=== PATIENT | female | born 1945 | race Caucasian/White ===

== ENCOUNTER 2017-05-03 10:02 | Outpatient (CLI) | payer MEDICARE ==
--- NOTE | 2017-05-03 11:59 | RAD ---
LUMBAR SPINE TWO VIEWS: HISTORY: Lower back pain with pain in the left hip for one year. COMPARISON: Lumbar spine MRI from 04/07/2017. FINDINGS: There is anterolisthesis, 6-7 mm, of L4 over L5, in the neutral position, increasing to approximatel y 9 mm with flexion, with a decrease back to the 6-7 mm with extension. There appears to be a large circumferential disk osteophyte complex at T12-L1, giving the appearance of a superior endplate depression deformity. The same is true for T11-T12. Severe disk arthropathy at L4-L5. IMPRESSION: 1. Anterolisthesis, 7 mm, of L4 over L5, which increases with flexion and reduces back to 7 mm with extension. 2. Large circumferential disk osteophyte complex at T12-L1, giving the appearance of a superior end plate deformity, although this was not seen on the recent MRI examination. 3. Severe facet arthropathy at L4-L5. 4. 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 POS: OFF
== END 2017-05-03 10:03 | disposition home or self-care (01) ==
LOC: TBSIIMAG 10:02
PROVIDERS: ATTEND Neurological Surgery
DX: M51.16 Intervertebral disc disorders with radiculopathy, lumbar region (principal); M43.16 Spondylolisthesis, lumbar region
CPT/HCPCS: 72100

== ENCOUNTER 2019-07-23 09:00 | Outpatient (CLI) | payer MEDICARE ==
--- NOTE | 2019-07-23 10:15 | MRI ---
MRI lumbar spine noncontrast HISTORY: Low back pain. Left leg radiculopathy. COMPARISON: 04/07/2017. FINDINGS: Images that partially show the abdomen show demonstrate cysts of the liver and kidneys. The conus medullaris has normal appearance. There is desiccation of all of the intervertebral discs. Scattered discogenic endplate changes within the bone marrow. Vertebral body heights are maintained. T12-L1: Disc space narrowing. Mild posterior disc bulge. Osteophytosis of the facets. No significant central canal or foraminal stenosis. L1-2: Mild posterior disc bulge. Degenerative changes of the facets with fluid present. Central canal and right neural foramina are patent. Mild to moderate stenosis of the left neural foramen. L2-3: Mild posterior disc bulge. Circumferential degenerative changes. Moderate stenosis of the centr al canal and each neural foramen. Minimal degenerative retrolisthesis. L3-4: Disc space narrowing. Mild posterior disc bulge. Degenerative changes of the facets. Thecal sac is patent. Mild right and mild to moderate left foraminal stenoses. L4-5: Disc space narrowing. Approximately 0.7 cm spondylolisthesis, increased since the 2017 study. P osterior disc bulge and pseudobulge and circumferential degenerative changes. Very severe stenosis of the central canal. Moderate to severe right and moderate left foraminal stenoses. L5-S1: Mild osteophytosis. Central canal and neural foramina are patent. IMPRESSION: Significant progression of degenerative changes, most severe at the L4-5 level, with very severe central canal stenosis.
--- NOTE | 2019-07-23 11:11 | RAD ---
EXAM: XR Lumbar Spine Min 4 View PROVIDED CLINICAL HISTORY: Radicular lumbar pain. Patient reports chronic low back pain for 2 years. COMPARISON: 05/03/2017 FINDINGS: Transitional vertebra seen at the lumbosacral junction. Again noted is grade 1 anterolisthesis of L4 on L5. The degree of listhesis measures approximately 9 mm on both flexion and extension views which is similar to prior study. There are prominent facet hypertrophic changes at this level. Scattered osteophytes are seen in the lower thoracic spine. There is mild narrowing of the L4-5 and L 5-S1 intervertebral disc spaces. The vertebral body heights are within normal limits. No fracture is appreciated. There is mild S-shaped curvature of the thoracolumbar spine. Surgical clips overlie the right upper quadrant IMPRESSION: 1. Degenerative changes in the lumbar spine with stable anterolisthesis of L4 on L5, and the degree o f listhesis is similar on flexion and extension as well as neutral positioning. 2. Severe facet hypertrophic changes L4-5 level with additional scattered degenerative changes in the lower thoracic as well as involving the lumbar spine.
== END 2019-07-23 09:01 | disposition home or self-care (01) ==
LOC: BICMRI 09:00
PROVIDERS: ATTEND Nurse Practitioner Family
DX: M47.26 Other spondylosis with radiculopathy, lumbar region (principal); M43.16 Spondylolisthesis, lumbar region; M48.061 Spinal stenosis, lumbar region without neurogenic claudication
CPT/HCPCS: 72110; 72148

== ENCOUNTER 2019-09-05 05:36 | Day surgery (SDC) | payer MEDICARE ==
[2019-09-04 11:50] VITALS: BMI 33.3
--- NOTE | 2019-09-04 21:39 | HP ---
HISTORY OF PRESENT ILLNESS: Ms. Arnett is known to our office for evaluation of lower back pain and claudication symptoms with MRI confirming spinal stenosis years ago, who has been treating this with epidural steroid injection since that time and had great result until the last few months, when they began to notice the efficacy. Her symptoms also seem to be worsening. She is walker dependent and walks with a severely stooped posture, frequently takes breaks as well to sit back down, at which time her symptoms improve tremendously. The MRI reveals worsening of her grade 1 slip at L4-L5 as well as severe central canal stenosis at the same level her symptoms. She and her were under the impression that we will be discussing a spinal stimulator placement; however, reviewing her symptoms and films, I felt she would greatly benefit from decompressive surgery first. PAST MEDICAL HISTORY: Significant for hypertension, chronic pain, and headaches. CURRENT MEDICATIONS: 1. Calcium. 2. Amlodipine. 3. Trazodone. 4. Atenolol. 5. Losartan. 6. Diclofenac. 7. Tramadol. PAST SURGICAL HISTORY: Hysterectomy, cholecystectomy, herniorrhaphy, and bilateral total knee replacements. ALLERGIES: NO KNOWN DRUG ALLERGIES. PHYSICAL EXAMINATION: The patient is alert and oriented x3. Gait is severely antalgic, stooped, and walker dependent. Lower extremity motor exam is normal. She does have positive straight leg raise bilaterally. ASSESSMENT: Lumbar spinal stenosis and spondylolisthesis. PLAN: Dr. Funez met with the patient, reviewed imaging, and advocated for an L4-L5 decompression and fusion. He explained to the patient the risks, benefits, and alternatives to the procedure. The patient expressed understanding and elected to move forward with surgery as discussed. I do believe the patient is mentally competent and capable of making medical decisions for herself. We will move forward with surgery as planned. Job ID: [id number]
[2019-09-05] MEDS ORDERED: EPINEPHrine 1 MG/ML AMP ONE (06:22)
[2019-09-05] MEDS ORDERED: Bupivacaine PF 0.5% 30 ML VIAL ONE (06:22)
[2019-09-05] MEDS ORDERED: Thrombin 5000 UNITS/5 ML VIAL ONE (06:22)
[2019-09-05 06:42] LABS: #Basophils 0.1 thou/uL (0.0-0.2); #Eosinphils 0.2 thou/uL (0.0-0.7); #Lymphocytes 2.3 thou/uL (1.20-3.40); #Monocytes 0.7 thou/uL (0.11-0.59); #Neutrophils 6.5 thou/uL (1.40-6.50); %Basophils 0.6 % (0.0-1.0); %Eosinophils 1.7 % (0.0-10.0); %Lymphocytes 24.2 % (21.0-51.0); %Monocytes 6.8 % (0.0-10.0); %Neutrophils 66.6 % (42.0-75.0); Hemoglobin 16.1 g/dL (12.0-16.0); Mean Corpuscular Hemoglobin 32.1 pg (27.0-31.0); Mean Corpuscular Volume 97.2 fL (78.0-98.0); Mean Platelet Volume 8.1 fL (7.4-10.4); Platelet Count 207 thou/uL (130-400); RBC Distribution Width 12.4 % (11.5-14.5); Red Blood Cell (RBC) Count 5.01 mill/uL (4.20-5.40); White Blood Cell (WBC) Count 9.7 thou/uL (4.8-10.8)
[2019-09-05] MEDS ORDERED: Fentanyl 100 MCG/2 ML VIAL ONE ×2 (06:43→08:38)
[2019-09-05 06:48] LABS: PTT 24.6 SEC (22.9-36.1); Prothrombin Time 13.6 SEC (12.0-14.7)
[2019-09-05 06:57] LABS: Anion Gap 15 mmol/L (10-20); BUN (Urea Nitrogen) 20 mg/dL (9.8-20.1); Calc. Creatinine Clearance 59 mL/min (70-130); Calcium 10.4 mg/dL (7.8-10.44); Carbon Dioxide 25 mmol/L (23-31); Chloride 107 mmol/L (98-107); Estimated GFR-MDRD 45; Glucose 159 mg/dL (83-110); Potassium 4.5 mmol/L (3.5-5.1); Sodium 142 mmol/L (136-145)
[2019-09-05] MEDS ORDERED: ePHEDrine/0.9% NaCl/PF SYRINGE 50 mg/10 ml ONE (09:17)
[2019-09-05] MEDS ORDERED: Rocuronium Bromide 10 MG/ML (10ML VIAL) ONE (09:17)
[2019-09-05] MEDS ORDERED: Glycopyrrolate 0.2 MG/ML 5 ML SYRINGE ONE (09:17)
[2019-09-05] MEDS ORDERED: Dexamethasone 20 MG/5 ML VIAL ONE (09:17)
[2019-09-05] MEDS ORDERED: Lidocaine 1% PF 5 ML VIAL ONE (09:17)
[2019-09-05] MEDS ORDERED: PROPOFOL 200 MG/20 ML VIAL ONE (09:17)
[2019-09-05] MEDS ORDERED: Ondansetron PF 4 MG/2 ML Vial ONE (09:17)
[2019-09-05] MEDS ORDERED: HYDROcodone/Acetaminophen 5/325 mg Tablet ONE ×2 (11:37→13:31)
[2019-09-05] MEDS ORDERED: Triple Antibiotic Oint 1 GM Packet TOP SCH (14:00)
--- NOTE | 2019-09-05 15:43 | OP ---
DATE OF PROCEDURE: 09/05/2019 BLIND TEACHER: Rashad Boucher PA-C INDICATION: Pain. DIAGNOSIS: Lumbar spondylolisthesis with stenosis. PROCEDURES PERFORMED: L4-L5 bilateral facetectomies, bilateral L4-L5 instrumentation. ANESTHESIA: General. DESCRIPTION OF PROCEDURE: The patient was brought into the operating room and placed under general anesthesia. She was flipped from the supine to prone position on the operating room table. A linear incision was planned over the L4-L5 segment. After prepping and draping and after an appropriate operative pause, the incision was created. The soft tissues were swept away from midline. Self-retaining retractors were placed in the wound for optimal exposure. After confirming appropriate level with C-arm fluoroscopy, an Adson rongeur as well as a high-speed cutting drill bit as well as 2-, 3-, and 4-mm Kerrisons were used to remove lamina, spinous process at L4-L5, and the facet joints in order to decompress the central canal and lateral recesses. The pedicles were palpated, and pedicle screws were placed with the aid of C-arm fluoroscopy. An intraoperative 3D CT scan was performed to confirm appropriate placement of hardware. Rods were then placed across the screw heads and final tightened. Allograft and autograft material were then placed within the lateral confines of the instrumentation construct. The wound was then irrigated. Hemostasis was maintained throughout. The wound was then closed in anatomic layers and a pressure dressing was applied. There were no known procedural complications. Job ID: [id number]
== END 2019-09-05 14:20 | disposition home or self-care (01) ==
LOC: SDC 05:36
PROVIDERS: ATTEND Neurological Surgery
PROC: 01NB0ZZ Release Lumbar Nerve, Open Approach (ICD-10-PCS; principal; 2019-09-05)
DX: M48.061 Spinal stenosis, lumbar region without neurogenic claudication (principal); M43.16 Spondylolisthesis, lumbar region; I10 Essential (primary) hypertension; Z79.899 Other long term (current) drug therapy
CPT/HCPCS: 36415; 76000; 80048; 85025; 85610; 85730; 93005; 93010; C1713; J0171; J0690; J1100; J2001; J2405; J2704; J3010; S0020

== ENCOUNTER 2019-10-09 12:40 | Inpatient (IN) | payer MEDICARE ==
--- NOTE | 2019-10-09 13:19 | RAD ---
RADIOGRAPH CHEST 1 VIEW: DATE: 10/09/2019 HISTORY: 74-year-old female with dyspnea FINDINGS: There is no airspace density, pulmonary edema, or pneumothorax. The lateral costophrenic angles are n ot effaced. IMPRESSION: No acute pulmonary findings.
[2019-10-09] MEDS ORDERED: Iopamidol-370 76% 500 ML 1 ML ONE (13:59)
[2019-10-09 14:05] LABS: #Eosinphils 0.1 thou/uL (0.0-0.7); #Lymphocytes 2.4 thou/uL (1.20-3.40); #Monocytes 0.7 thou/uL (0.11-0.59); #Neutrophils 6.3 thou/uL (1.40-6.50); %Basophils 0.4 % (0.0-1.0); %Eosinophils 1.2 % (0.0-10.0); %Lymphocytes 24.7 % (21.0-51.0); %Monocytes 7.3 % (0.0-10.0); %Neutrophils 66.4 % (42.0-75.0); Hemoglobin 14.7 g/dL (12.0-16.0); Mean Corpuscular HGB CONC 33.2 g/dL (32.0-36.0); Mean Corpuscular Volume 99.3 fL (78.0-98.0); Mean Platelet Volume 8.9 fL (7.4-10.4); Platelet Count 194 thou/uL (130-400); RBC Distribution Width 13.4 % (11.5-14.5); Red Blood Cell (RBC) Count 4.47 mill/uL (4.20-5.40); White Blood Cell (WBC) Count 9.5 thou/uL (4.8-10.8)
[2019-10-09 14:26] LABS: ALT (SGPT) 47 U/L (8-55); AST (SGOT) 37 U/L (5-34); Alkaline Phosphatase 113 U/L (40-110); Anion Gap 16 mmol/L (10-20); BUN (Urea Nitrogen) 26 mg/dL (9.8-20.1); Bilirubin, Total 0.5 mg/dL (0.2-1.2); Calc. Creatinine Clearance 0 mL/min (70-130); Calcium 10.1 mg/dL (7.8-10.44); Carbon Dioxide 25 mmol/L (23-31); Chloride 105 mmol/L (98-107); Estimated GFR-MDRD 39; Globulin 2.8 g/dL (2.4-3.5); Glucose 206 mg/dL (83-110); Potassium 4.5 mmol/L (3.5-5.1); Protein, Total 6.8 g/dL (6.0-8.3); Sodium 141 mmol/L (136-145)
--- NOTE | 2019-10-09 15:06 | CT ---
CTA Angio Chest W WO Con 10/09/2019 12:54 PM Indication: Dyspnea with history of recent surgery Technique: Multiple CTA images were obtained of the thorax with IV contrast. 3-D rendering: MIP ignacio nstructed images were created and reviewed. Comparison: No relevant prior studies available. Findings: Pulmonary arteries: There is a near occlusive thrombus seen within the distal right main pulmonary a rtery with occlusive thrombus seen within the lateral segment branches of the right middle lobe. There is also occlusive thrombus seen within the right interlobar artery partially occlusive thrombus extending into the segmental pulmonary arteries of the right lower lobe. There is also nearly occlusive thrombus seen within the upper right lobar pulmonary artery with subsegmental thrombus exte nding into the right upper lobe pulmonary arterial segments. There is partially occlusive thrombus seen involving the left lower lobar and segmental pulmonary arteries. There is occlusive thrombus at the involving the lobar arteries to the lingula and left upper lobe. Heart and Aorta: There is flattening of the interventricular septum is some reflux of contrast in th e IVC. Mediastinum:Normal appearing. No enlarged lymph nodes. Lungs:There are patchy groundglass opacities within the anterior segment of the right upper lobe. The re are reticular nodular opacities within the posterior lateral right lower lobe which are nonspecific. Calcified granuloma seen within the left lower lobe. Pleural space: Clear. Upper Abdomen: Calcified nodular density seen within the gastrohepatic ligament is stable to compari son CT the abdomen and pelvis dated 05/19/2016. There is stable hypertrophy of the left adrenal gland. There is mild fatty liver. There are numerous nonobstructing left renal stones. Osseous Structures: No acute osseous abnormality. There is scattered degenerative and osteoarthritic change present. Soft tissues:No abnormality. Other findings:None. Impression: Extensive PE seen affecting both lungs with some flattening of the interventricular septum and reflux of contrast in the IVC suspicious suspicious for early right heart dysfunction. Findings were called to Dr. Mg at 2:55 PM on October 09, 2019. Area of groundglass opacity right upper lobe may reflect early pulmonary hemorrhage; however, pneumon itis or mild pulmonary edema could have a similar appearance. Continued follow-up is recommended. Reticular nodular opacity of the posterior right lower lobe may reflect a respiratory bronchiolitis. Mild fatty liver.
[2019-10-09] MEDS ORDERED: Acetaminophen 325 MG TAB PO PRN (15:55)
[2019-10-09] MEDS ORDERED: niCARdipine 25 MG in Sodium Chloride 0.9% 250 ML 240 ML IVPB PRN (15:57)
[2019-10-09] MEDS ORDERED: niCARdipine 20MG In NaCl 0 MG/0 ML BAG ONE (16:15)
[2019-10-09] MEDS ORDERED: traMADol HCl 50 MG TAB PO PRN (16:46)
[2019-10-09] MEDS ORDERED: Heparin 10,000 UNITS/ 10 ML VIAL SLOW IVP SCH ×2 (17:00→18:15)
[2019-10-09] MEDS ORDERED: Heparin 25,000 units/D5W 500 ML IVPB SCH (17:00)
--- NOTE | 2019-10-09 17:11 | CON ---
DATE OF CONSULTATION: 10/09/2019 REASON FOR CONSULTATION: Saddle pulmonary embolism. HISTORY OF PRESENT ILLNESS: Ms. Arnett is a 74-year-old female, who presented to the emergency room with 2 to 3 days of increasing shortness of breath. She has no hemoptysis, bleeding diathesis, or evidence of gastrointestinal bleeding. She does have a previous history of a pulmonary embolism many years ago, for which she took Lovenox and Eliquis, but has been off both those medications for some time. Today in the emergency room, she underwent a CT pulmonary angiogram, which demonstrated bilateral mainstem pulmonary emboli. She has had severe hypoxemia with O2 saturations in the low 80s on 4 L nasal cannula. She had a flattening of her septum on the CT. PAST MEDICAL HISTORY: 1. Pulmonary emboli. 2. Hypertension. 3. DVT. 4. Previous ischemic stroke. PAST SURGICAL HISTORY: 1. Cystoscopy. 2. Ureteroscopy. 3. Cholecystectomy. 4. Right total knee replacement. 5. Hysterectomy. 6. Left total knee replacement. SOCIAL HISTORY: Nonsmoker. Does not consume alcohol. Lives at home with her . MEDICATIONS PRIOR TO ADMISSION: 1. Atenolol 25 mg twice daily. 2. Amlodipine 10 mg daily. 3. Losartan 100 mg daily. 4. Diclofenac/misoprostol 50/200 mcg one twice daily. 5. Trazodone 100 mg nightly. REVIEW OF SYSTEMS: Denies fever, chills, nausea, vomiting, hematemesis, melena, hematochezia, hematuria, or dysuria. PHYSICAL EXAMINATION: VITAL SIGNS: Blood pressure 156/78, pulse 95, respirations 20, temperature 98.3, and O2 saturation low 80s 4 L. GENERAL: She is sitting, appears in no distress. HEENT: Pupils are reactive. Sclerae anicteric. Oropharynx clear. NECK: No adenopathy or JVD. LUNGS: Clear without wheezing or rhonchi. CARDIOVASCULAR: S1 and S2. Regular without audible murmur. ABDOMEN: Soft and nontender. EXTREMITIES: No clubbing, cyanosis, or edema. NEUROLOGIC: Fully intact throughout. LABORATORY DATA: White blood cell count 9.5, hematocrit 44.4, and platelet count 194. Sodium 141, potassium 4.5, chloride 105, CO2 of 25, BUN 26, creatinine 1.3, and glucose 206. BNP 1017.8 and troponin 0.018. I reviewed the CT of her chest personally. ASSESSMENT: 1. Massive pulmonary embolism. 2. Previous history of pulmonary embolism. 3. Refractory hypoxemia with evidence of septum flattening on CT of the chest. RECOMMENDATIONS: I concur with Dr. Mg that the best way to proceed in this case is thrombolysis with 100 mg of tPA given over 2 hours. Her blood pressure was somewhat high, so we will give her some medicine to lower that somewhat starting tomorrow. She will need to be placed on Eliquis or Lovenox. She will need anticoagulation lifelong. We discussed the risks of thrombolysis prior to the patient receiving the medication and she agreed to proceed. Thank you for the referral. We will follow. Job ID: [id number]
[2019-10-09 17:22] LABS: Hemoglobin 15.8 g/dL (12.0-16.0); Platelet Count 158 thou/uL (130-400)
[2019-10-09 18:11] VITALS: BMI 36.1
--- NOTE | 2019-10-09 20:22 | HP ---
CHIEF COMPLAINT: Shortness of breath. HISTORY OF PRESENT ILLNESS: This patient is a 74-year-old female with a history of prior pulmonary embolus some time ago. The patient was on anticoagulation for that, but apparently at some point, had discontinued that. She was subsequently seen here for lumbar stenosis surgery with fusion on 09/05. Subsequently, the patient was inactive for few days and her activity level since then has not been particularly significant. reports that she spends a lot of time sitting in the recliner and she had no lower extremity pain, redness, or swelling. However, she did develop some shortness of breath over the last few days, which has become significantly more today. The patient presented to the emergency department. She denies any chest pain, hemoptysis, fevers, or chills. REVIEW OF SYSTEMS: Again, denies any lower extremity pain, redness, swelling, chest pain, cough, hemoptysis. She does have shortness of breath. She has had no fevers or chills. Normal bowel and bladder habits. All other systems reviewed. All pertinent positives and negatives noted in the history of present illness. PAST MEDICAL HISTORY: Notable for hypertension, osteoarthritis, history of a CVA about 16 years ago. She has a history of nephrolithiasis, history of DVT with pulmonary embolus. FAMILY HISTORY: Reviewed. Nothing contributory related to this admission. PAST SURGICAL HISTORY: She has had knee replacement surgery, shoulder surgery, and the lumbar fusion on 09/05. ALLERGIES: NONE. CURRENT MEDICATIONS: 1. Trazodone 50 mg at bedtime. 2. Tramadol 50 mg q.6 p.r.n. pain. 3. Losartan 100 mg daily. 4. Atenolol 50 mg b.i.d. 5. Amlodipine 5 mg daily. 6. Diclofenac one p.o. b.i.d. PHYSICAL EXAMINATION: VITAL SIGNS: Pulse 77, respirations 16, BP 168/108, she is afebrile. GENERAL APPEARANCE: Age-appropriate female, in no distress. She is awake, alert, oriented, pleasant, cooperative, mildly tachypneic. HEENT: PERRL. No OP lesions. NECK: Supple and symmetric. HEART: Regular rate and rhythm without murmurs, gallops, or rubs. LUNGS: Clear to auscultation bilaterally with good chest wall expansion and air exchange. ABDOMEN: Soft, nontender, and nondistended. Positive bowel sounds. No masses. No organomegaly. EXTREMITIES: Have trace lower extremity edema. No obvious erythema. Palpation was limited. PSYCH: Normal affect and behavior. NEUROLOGICAL: Moves all extremities spontaneously. Normal cranial nerve function. Cognitively intact. Normal sensation throughout. LABORATORY DATA: White count 9.5, hemoglobin 14.7, platelets 194. Sodium 141, potassium 4.5, chloride 105, CO2 is 25, BUN 26, creatinine 1.32, GFR is 39, glucose 206, calcium 10.1, AST 37, ALT 47, alkaline phosphatase 113. Troponin is 0.018. BNP 1017.8. Chest x-ray, no acute pulmonary findings. CTA of chest, extensive PE seen affecting both lungs with some flattening of the interventricular septum and reflux of contrast in the IVC, suspicious for early right heart dysfunction. Area of ground-glass opacity of the right upper lobe, possibly reflecting early pulmonary hemorrhage; however, pneumonitis or mild pulmonary edema could appear similar. Reticulonodular opacity in the posterior right lower lobe may reflect respiratory bronchiolitis, mild fatty liver. IMPRESSION AND PLAN: 1. Large pulmonary embolism, currently causing some hypoxia with sats at 88% on 4 L nasal cannula with right axis deviation and poor R-wave progression on EKG. The patient has been seen by Dr. Lee. She is about to receive some tPA once the blood pressure is adequately controlled and will be admitted to the ICU subsequently. This is the second time the patient has had a thrombus, will need lifelong anticoagulation. 2. Hypertensive urgency. The patient actually remains asymptomatic. However, given the need to administer the tPA, we have to get her blood pressures down into the appropriate acceptable range. Cardene drip is being initiated at 5 mg/hour and titrated as needed to maintain appropriate blood pressure control for administration of the tPA. 3. Acute hypoxic respiratory failure secondary to the pulmonary embolism. Continue supplemental oxygen as needed. 4. History of osteoarthritis, holding off on diclofenac for now given the need for the tPA. We will continue with her tramadol as needed. 5. Case was discussed with her PCP, Dr. Yosef Evans. Job ID: [id number]
[2019-10-09] MEDS: Atenolol 50 MG TAB PO SCH (20:29)
[2019-10-09] MEDS: traZODone HCl 50 MG TAB PO SCH (20:29)
[2019-10-09] MEDS: Communication Order-Pharmacy FS SCH (21:18)
[2019-10-10 04:13] LABS: PTT 143.7 SEC (22.9-36.1)
--- NOTE | 2019-10-10 08:47 | PRG ---
DATE OF SERVICE: SUBJECTIVE: Ms. Arnett is doing better today. She got her tPA yesterday. She has been able to come down on the oxygen. Her blood pressure has been stable on exam. OBJECTIVE: VITAL SIGNS: Temperature 98.5, pulse 55, blood pressure 154/77. Total intake 920, output 1000. HEENT: Unremarkable. NECK: No adenopathy or JVD. CHEST: Clear. CARDIAC: S1 and S2, regular. ABDOMEN: Soft. EXTREMITIES: No edema. LABORATORY DATA: PTT 26.1. Hemoglobin 15.8, hematocrit 48, and platelet count 158. ASSESSMENT: Pulmonary embolism. PLAN: 1. Continue heparin drip today. 2. Probably convert to Eliquis tomorrow if stable. 3. Keep in CCU until she is 24 hours post tPA. Job ID: [id number]
[2019-10-10] MEDS: Amlodipine 5 MG TAB PO SCH (09:09)
[2019-10-10] MEDS: Losartan 25 MG TAB PO SCH (09:10)
[2019-10-10] MEDS: Atenolol 50 MG TAB PO SCH ×2 (09:10→21:37)
--- NOTE | 2019-10-10 14:55 | PDOC.HOSPP ---
- Subjective Encounter Date: 10/10/19 Subjective: Doing very well. Breathing is much improved. - Objective Vital Signs & Weight: Vital Signs (12 hours) Temp Pulse BP Pulse Ox 10/10/19 12:00 98.6 F 10/10/19 09:10 71 119/58 L 10/10/19 09:09 71 119/58 L 10/10/19 08:08 99 10/10/19 07:40 97 10/10/19 07:00 98.5 F 10/10/19 04:00 98.5 F Weight Weight 217 lb 2.485 oz Most Recent Monitor Data Heart Rate from ECG 66 NIBP 130/65 NIBP BP-Mean 86 Respiration from ECG 21 SpO2 97 I&O: 10/09/19 10/10/19 10/11/19 06:59 06:59 06:59 Intake Total 920 570 Output Total 1000 150 Balance -80 420 Result Diagrams: 10/09/19 17:04 10/09/19 13:54 Hospitalist ROS - Medication Medications: Active Medications Generic Name Dose Route Start Last Admin Trade Name Alexq PRN Reason Stop Dose Admin Amlodipine Besylate 5 mg 10/10/19 09:00 10/10/19 09:09 Norvasc PO 5 mg DAILY JARAD Administration Atenolol 50 mg 10/09/19 21:00 10/10/19 09:10 Tenormin PO 50 mg BID JARAD Administration Heparin Sodium (Porcine) 0 units 10/09/19 18:15 10/10/19 08:21 Heparin 1,000 Units/Ml (10 Ml) SLOW IVP 7,880 unit ASDIR JARAD Administration Protocol Heparin Sodium/Dextrose 500 mls @ 0 mls/hr 10/09/19 17:00 10/09/19 21:56 Heparin 25,000 Units/D5w IVPB 500 mls INF JARAD Administration Protocol Per Protocol Losartan Potassium 100 mg 10/10/19 09:00 10/10/19 09:10 Cozaar PO 100 mg DAILY JARAD Administration Miscellaneous Information 1 each 10/09/19 16:00 10/09/19 21:18 Communication Order-Pharmacy FS 10/10/19 16:01 Not Given NOW JARAD Trazodone HCl 50 mg 10/09/19 21:00 10/09/19 20:29 Desyrel PO 50 mg HS JARAD Administration - Exam General Appearance: NAD, awake alert Heart: RRR, no murmur, no gallops, no rubs, normal peripheral pulses Respiratory: CTAB, no wheezes, no rales, no ronchi, normal chest expansion, no tachypnea, normal percussion Gastrointestinal: soft, non-tender, non-distended, normal bowel sounds, no palpable masses, no hepatomegaly, no splenomegaly, no bruit Extremities: no cyanosis, no clubbing, no edema Skin: normal turgor Musculoskeletal: normal tone Psychiatric: normal affect, normal behavior, A&O x 3 Hosp A/P (1) Acute respiratory failure with hypoxia Code(s): J96.01 - ACUTE RESPIRATORY FAILURE WITH HYPOXIA Status: Acute (2) Pulmonary embolism with acute cor pulmonale Code(s): I26.09 - OTHER PULMONARY EMBOLISM WITH ACUTE COR PULMONALE Status: Acute (3) HTN (hypertension) Code(s): I10 - ESSENTIAL (PRIMARY) HYPERTENSION Status: Acute (4) CKD (chronic kidney disease), stage III Code(s): N18.3 - CHRONIC KIDNEY DISEASE, STAGE 3 (MODERATE) Status: Acute - Plan Doing well post tPA for large bilateral PE with cor pulmonale and acute hypoxia. Now on heparin gtt. Will convert to OAC tomorrow. Can likely transfer out of the ICU tomorrow. Increase activity this evening (24 hours after the tPA). Recheck labs in am.
[2019-10-10 14:57] LABS: PTT Greater than 250.0 SEC (22.9-36.1)
[2019-10-10] MEDS: Communication Order-Pharmacy FS SCH (16:10)
[2019-10-10] MEDS: traZODone HCl 50 MG TAB PO SCH (21:33)
[2019-10-11 03:49] LABS: #Basophils 0.1 thou/uL (0.0-0.2); #Eosinphils 0.3 thou/uL (0.0-0.7); #Lymphocytes 2.8 thou/uL (1.20-3.40); #Monocytes 0.9 thou/uL (0.11-0.59); #Neutrophils 4.9 thou/uL (1.40-6.50); %Basophils 0.6 % (0.0-1.0); %Eosinophils 3.8 % (0.0-10.0); %Lymphocytes 31.2 % (21.0-51.0); %Monocytes 10.1 % (0.0-10.0); %Neutrophils 54.3 % (42.0-75.0); Hemoglobin 13.3 g/dL (12.0-16.0); Mean Corpuscular HGB CONC 32.1 g/dL (32.0-36.0); Mean Corpuscular Hemoglobin 31.8 pg (27.0-31.0); Mean Corpuscular Volume 99.3 fL (78.0-98.0); Mean Platelet Volume 8.6 fL (7.4-10.4); Platelet Count 193 thou/uL (130-400); RBC Distribution Width 13.4 % (11.5-14.5); Red Blood Cell (RBC) Count 4.19 mill/uL (4.20-5.40)
[2019-10-11 04:08] LABS: Anion Gap 12 mmol/L (10-20); BUN (Urea Nitrogen) 14 mg/dL (9.8-20.1); Calc. Creatinine Clearance 80 mL/min (70-130); Calcium 9.8 mg/dL (7.8-10.44); Carbon Dioxide 26 mmol/L (23-31); Chloride 106 mmol/L (98-107); Estimated GFR-MDRD 57; Glucose 150 mg/dL (83-110); Potassium 3.9 mmol/L (3.5-5.1); Sodium 140 mmol/L (136-145)
[2019-10-11 06:41] LABS: PTT 132.6 SEC (22.9-36.1)
[2019-10-11] MEDS: Atenolol 50 MG TAB PO SCH ×2 (08:28→20:25)
[2019-10-11] MEDS: Amlodipine 5 MG TAB PO SCH (08:29)
[2019-10-11] MEDS: Losartan 25 MG TAB PO SCH (08:29)
[2019-10-11] MEDS: Apixaban 5 MG TAB PO SCH ×2 (08:29→20:27)
--- NOTE | 2019-10-11 08:37 | PRG ---
DATE OF SERVICE: 10/11/2019 SUBJECTIVE: Ms. Arnett has a poor memory for what is going on. Overall, she seems stable and has had no bleeding events overnight. OBJECTIVE: VITAL SIGNS: Her temperature is 98.5, pulse 55, blood pressure 121/48, O2 saturations 97%. A 24-hour intake 1855, output 1500. HEENT: Unremarkable. NECK: No adenopathy or JVD. LUNGS: Clear anteriorly. CARDIAC: S1 and S2. Regular. ABDOMEN: Soft. EXTREMITIES: No edema. LABORATORY DATA: White blood cell count 9, hematocrit 41.6, and platelet count 193. PTT 132. Sodium 140, potassium 3.9, chloride 106, CO2 of 26, BUN 14, creatinine 0.9, glucose 150. ASSESSMENT: 1. Massive pulmonary embolism. 2. Acute hypoxic respiratory failure, which is now resolved. PLAN: She can transfer to telemetry. I will go ahead and start her on Eliquis and stop the heparin drip about 2 hours after the first Eliquis dose. She will need to remain on dose of Eliquis 10 mg b.i.d. for 7 days and then transition to 5 mg b.i.d. thereafter indefinitely. We will go ahead and start ambulation today. Job ID: [id number]
[2019-10-11] MEDS ORDERED: Dextrose 5% in Water 1,000 ML IV PRN (08:42)
[2019-10-11] MEDS ORDERED: Dextrose 50% Abboject 50 ML SYRINGE SLOW IVP PRN (08:42)
--- NOTE | 2019-10-11 09:33 | PRG ---
DATE OF SERVICE: 10/11/2019 SUBJECTIVE: The patient is seen and examined at the bedside. She is doing well. Her respirations improved. She is sitting up and eating her breakfast. OBJECTIVE: VITAL SIGNS: Blood pressure is 167/89, pulse is 76, respirations 16, O2 saturation is 92% on O2. HEENT: Her head is atraumatic, normocephalic. Eyes are PERRLA. Sclerae are nonicteric. Oral mucosa is moist. NECK: Supple. LUNGS: Bilateral rales at both bases, mild. HEART: S1 and S2 normal. No S3. No S4. ABDOMEN: Soft, obese, nontender. EXTREMITIES: No clubbing, cyanosis, or edema. NEUROLOGICAL: She is alert and oriented x4. There is no any motor or sensory deficits. LABORATORY DATA: White count of 9.0, hemoglobin 13.3, hematocrit 41.6, platelet count is 193,000. APTT 132.6. Normal chemistry. Glucose 150. IMPRESSION: 1. Acute respiratory failure with hypoxia. 2. Pulmonary embolism with acute cor pulmonale. 3. Hypertension. 4. Chronic kidney disease, stage 3, improved. DISCUSSION: The patient is post tPA for large bilateral PE, doing well. The patient was seen by Dr. Lee, who recommends to taper her heparin drip off and she is switched to apixaban 10 mg twice a day. Her glycemia is running high. We will do hemoglobin A1c and Accu-Cheks a.c. and at bedtime and cover her with mild sliding scale with Humalog. Job ID: [id number]
[2019-10-11] MEDS: HumaLOG 300 UNITS/3 ML VIAL SC PRN (11:46)
[2019-10-11 17:10] LABS: Hemoglobin 14.1 g/dL (12.0-16.0); Platelet Count 204 thou/uL (130-400)
[2019-10-11] MEDS: traZODone HCl 50 MG TAB PO SCH (20:25)
[2019-10-12 03:44] LABS: Anion Gap 11 mmol/L (10-20); BUN (Urea Nitrogen) 15 mg/dL (9.8-20.1); Calc. Creatinine Clearance 82 mL/min (70-130); Calcium 10.2 mg/dL (7.8-10.44); Carbon Dioxide 27 mmol/L (23-31); Chloride 107 mmol/L (98-107); Estimated GFR-MDRD 60; Glucose 145 mg/dL (83-110); Potassium 4.3 mmol/L (3.5-5.1); Sodium 141 mmol/L (136-145)
[2019-10-12] MEDS: Apixaban 5 MG TAB PO SCH ×2 (07:35→19:54)
[2019-10-12] MEDS: Losartan 25 MG TAB PO SCH (07:35)
[2019-10-12] MEDS: Amlodipine 5 MG TAB PO SCH (07:36)
--- NOTE | 2019-10-12 07:44 | PRG ---
DATE OF SERVICE: 10/12/2019 SUBJECTIVE: The patient doing extraordinarily well, not requiring oxygen at this time. No acute complaints. OBJECTIVE: VITAL SIGNS: On exam, temperature is 98.5, pulse 65, and blood pressure 172/88. HEENT: Unremarkable. NECK: No adenopathy or JVD. CHEST: Clear. CARDIAC: S1 and S2. Regular. ABDOMEN: Soft. EXTREMITIES: No edema. LABORATORY DATA: Sodium 141, potassium 4.3, BUN 15, creatinine 0.9, and glucose 145. ASSESSMENT: Status post thrombolysis for massive pulmonary embolism. PLAN: She can be transferred to the medical floor. Continue Eliquis lifelong, dose will be 10 mg twice daily for the next 6 days and then 5 mg twice a day thereafter. I think she would be safe enough to be discharged tomorrow. Job ID: [id number]
[2019-10-12] MEDS: Atenolol 50 MG TAB PO SCH ×2 (09:17→20:48)
--- NOTE | 2019-10-12 09:27 | PRG ---
DATE OF SERVICE: 10/12/2019 SUBJECTIVE: The patient is seen examined at the bedside. She feels significantly better. Her breathing is improved. OBJECTIVE: VITAL SIGNS: Blood pressure is 152/64, pulse is 63, respirations 17, O2 saturation is 93% on room air. HEENT: Head is atraumatic and normocephalic. Eyes are PERRLA. Sclerae are nonicteric. Oral mucosa is moist. NECK: Supple. LUNGS: Breath sounds diminished at both bases with few crackles at both bases. HEART: S1, S2 normal. No S3. No S4. ABDOMEN: Soft. Obese. Nontender. EXTREMITIES: No clubbing, cyanosis, or edema. NEUROLOGICAL: She follows my commands. She moves all 4 extremities. There are no any motor or sensory deficits. LABORATORY DATA: Labs showed normal chemistry. Glucose ranging from 140-188, calcium 10.2. Normal kidney function. IMPRESSION: 1. Acute respiratory failure with hypoxia, resolved. 2. Pulmonary embolism with acute cor pulmonale. 3. Hypertension. 4. Chronic kidney disease stage 3, improved. 5. Diabetes mellitus, new onset. PLAN: The patient is going to continue observation on the telemetry. She is switched to oral apixaban. Lovenox was discontinued. Her glycemia will be treated with short-acting insulin according to sliding scale. She should be able to go home in the next 24 to 48 hours. Job ID: [id number]
[2019-10-12] MEDS: HumaLOG 300 UNITS/3 ML VIAL SC PRN (11:38)
[2019-10-12] MEDS: traZODone HCl 50 MG TAB PO SCH (19:54)
[2019-10-13 06:53] LABS: Anion Gap 12 mmol/L (10-20); BUN (Urea Nitrogen) 17 mg/dL (9.8-20.1); Calc. Creatinine Clearance 68 mL/min (70-130); Calcium 10.3 mg/dL (7.8-10.44); Carbon Dioxide 28 mmol/L (23-31); Chloride 105 mmol/L (98-107); Estimated GFR-MDRD 48; Glucose 149 mg/dL (83-110); Potassium 4.8 mmol/L (3.5-5.1); Sodium 140 mmol/L (136-145)
[2019-10-13] MEDS: Losartan 25 MG TAB PO SCH (08:40)
[2019-10-13] MEDS: Apixaban 5 MG TAB PO SCH ×2 (08:40→19:38)
[2019-10-13] MEDS: Amlodipine 5 MG TAB PO SCH (08:40)
[2019-10-13] MEDS: Atenolol 50 MG TAB PO SCH ×2 (08:47→19:47)
--- NOTE | 2019-10-13 10:10 | PRG ---
DATE OF SERVICE: 10/13/2019 SUBJECTIVE: The patient is seen and examined at bedside. She is doing well. She is not short of breath. She did not have any blood in her stool. She had normal bowel movement and there was no any blood in her urine. OBJECTIVE: VITAL SIGNS: Blood pressure is 125/79, pulse is 69, respiratory rate is 18, temperature is 98.4, pulse oximetry is 93% on room air. HEAD: Atraumatic and normocephalic. Eyes are PERRLA. Sclerae are nonicteric. Oral mucosa is moist. NECK: Supple. HEART: S1, S2 normal. LUNGS: Breath sounds diminished at both bases. ABDOMEN: Soft, nontender. EXTREMITIES: No clubbing, cyanosis, or edema. NEUROLOGICAL: Intact. LABORATORY DATA: Labs show normal electrolytes. BUN of 17, creatinine up to 1.11. Glycemia is ranging from 140 to 261 and calcium is 10.3. IMPRESSION: 1. Massive bilateral pulmonary embolism, on apixaban 10 mg twice a day for additional 5 days, then 5 mg twice a day, after that for life. 2. Acute respiratory failure with hypoxia secondary to #1, resolved. 3. Hypertension. 4. Diabetes mellitus, new onset. 5. Chronic kidney disease stage 3, worsened. PLAN: I am going to extent observation of this patient for additional 24 hours since she had massive PE with cor pulmonale and she had a tPA done. I am going to start her on small dose of metformin for her new onset diabetes and we will give her IV fluids for worsened creatinine and we will extend observation for 24 hours. She should be able to go home tomorrow if there is no any new problem. Job ID: [id number]
[2019-10-13] MEDS: Sodium Chloride 0.9% 1,000 ML IV SCH ×2 (10:16→22:40)
[2019-10-13] MEDS: metFORMIN 500 MG TAB PO SCH (10:20)
--- NOTE | 2019-10-13 10:47 | PRG ---
DATE OF SERVICE: 10/13/2019 SUBJECTIVE: This morning, she is better. No shortness of breath. Less cough. OBJECTIVE: VITAL SIGNS: Temperature 98, pulse 69, saturations are 98% on room air, blood pressure 128/79. CHEST: No wheezing or crackles. CARDIAC: Normal S1, S2. No gallops. ABDOMEN: No masses. ASSESSMENT: 1. Status post massive PE, status post tPA, on Eliquis. 2. Mild azotemia. DISPOSITION: Home any time, on Eliquis. Follow up with Dr. Lee. Job ID: [id number]
[2019-10-13 16:56] LABS: Platelet Count 276 thou/uL (130-400)
[2019-10-13] MEDS: traZODone HCl 50 MG TAB PO SCH (19:38)
[2019-10-13] MEDS: HumaLOG 300 UNITS/3 ML VIAL SC PRN (19:43)
[2019-10-14] MEDS: Sodium Chloride 0.9% 1,000 ML IV SCH (04:53)
[2019-10-14 05:57] LABS: #Eosinphils 0.3 thou/uL (0.0-0.7); #Lymphocytes 2.1 thou/uL (1.20-3.40); #Neutrophils 6.2 thou/uL (1.40-6.50); %Basophils 0.3 % (0.0-1.0); %Eosinophils 3.4 % (0.0-10.0); %Lymphocytes 21.6 % (21.0-51.0); %Monocytes 10.7 % (0.0-10.0); Hemoglobin 14.1 g/dL (12.0-16.0); Mean Corpuscular HGB CONC 33.2 g/dL (32.0-36.0); Mean Corpuscular Hemoglobin 33.1 pg (27.0-31.0); Mean Corpuscular Volume 99.6 fL (78.0-98.0); Mean Platelet Volume 7.8 fL (7.4-10.4); Platelet Count 286 thou/uL (130-400); RBC Distribution Width 13.5 % (11.5-14.5); Red Blood Cell (RBC) Count 4.26 mill/uL (4.20-5.40); White Blood Cell (WBC) Count 9.7 thou/uL (4.8-10.8)
[2019-10-14 06:18] LABS: Anion Gap 11 mmol/L (10-20); BUN (Urea Nitrogen) 15 mg/dL (9.8-20.1); Calc. Creatinine Clearance 80 mL/min (70-130); Calcium 10.4 mg/dL (7.8-10.44); Carbon Dioxide 24 mmol/L (23-31); Chloride 108 mmol/L (98-107); Estimated GFR-MDRD 57; Glucose 144 mg/dL (83-110); Potassium 4.1 mmol/L (3.5-5.1); Sodium 139 mmol/L (136-145)
[2019-10-14 07:35] VITALS: BP 154/78; TEMP 98
[2019-10-14] MEDS: Losartan 25 MG TAB PO SCH (09:14)
[2019-10-14] MEDS: Apixaban 5 MG TAB PO SCH (09:15)
[2019-10-14] MEDS: metFORMIN 500 MG TAB PO SCH (09:15)
[2019-10-14] MEDS: Amlodipine 5 MG TAB PO SCH (09:15)
[2019-10-14] MEDS: Atenolol 50 MG TAB PO SCH (09:16)
--- NOTE | 2019-10-14 11:06 | DIS ---
DATE OF ADMISSION: 10/09/2019 DATE OF DISCHARGE: 10/13/2019 DIAGNOSES AT THE TIME OF DISCHARGE: 1. Massive bilateral pulmonary embolism. 2. Acute respiratory failure with hypoxia secondary to #1 resolved. 3. Hypertension. 4. Diabetes mellitus, new onset. 5. Chronic kidney disease, stage 3. PROCEDURE: TPA. CONSULTANTS: 1. Dr. London Lee, Pulmonary Service. 2. Dr. Von Noel, Pulmonary Service. HOSPITAL COURSE: The patient is a 74-year-old female, who was admitted to the hospital with acute onset of shortness of breath. Apparently, she has history of prior pulmonary embolism some time ago and she was treated with anticoagulation for that, but apparently at some point, she discontinued the medications. Subsequently, she had lumbar stenosis surgery with fusion in August and she developed shortness of breath, which gradually became significantly worse and she presented to the emergency room for further evaluation. She denied any chest pain, hemoptysis, fever, or chills. She denied any lower extremity pain, redness, swelling, chest pain, cough, or any other symptoms. In the emergency room, she had CT angiogram of the chest, which showed extensive PE bilaterally with evidence of flattening of the interventricular septum and reflex of contrast in the IVC suspicious for early right heart dysfunction. Because of her hypoxia, she was placed on 4 L of oxygen by nasal cannula. Because of the right heart straining, she was treated with tPA and was admitted to intensive care unit. She was seen by Dr. Lee for pulmonary evaluation, who recommended tPA with 100 mg dose over 2 hours and switch to Eliquis after transition with Lovenox. She did very well post treatment. She did not have any significant side effects. Her echocardiogram was done and it showed LVEF estimated at 55% to 60% with moderate concentric left ventricular hypertrophy and right ventricular systolic pressure elevation at approximately 80 mmHg systolic in the pulmonary artery. She also had [id number] tricuspid regurgitation and moderately to severely enlarged right ventricle cavity. Her IVC was dilated. She was transferred out from the intensive care unit. She was placed on apixaban 10 mg twice a day and started on metformin 500 mg twice a day since her glycemia was running on higher side. This was new onset of previously borderline diabetes mellitus type 2. She is doing well today. PHYSICAL EXAMINATION: VITAL SIGNS: Her blood pressure is 154/78, pulse is 66, respiratory rate is 17, temperature is 98.0, and O2 saturation is 91% on room air. HEENT: Her head is atraumatic and normocephalic. Eyes are PERRLA. Sclerae are nonicteric. LUNGS: Breath sounds diminished at both bases. HEART: S1 and S2 normal. No S3. No S4. ABDOMEN: Obese, soft, nontender. NEUROLOGIC: She is alert and oriented x4. There are no any motor or sensory deficits. Labs show hemoglobin of 14.1, hematocrit 42.5. Normal kidney function. Her glycemia is ranging from 170 to 241, so I recommended her to stay on metformin 500 mg twice a day for her new onset diabetes along with losartan 100 mg once a day and amlodipine 5 mg daily and atenolol 50 mg twice a day. She will use tramadol for her pain and she is going to avoid any anti-inflammatory medications for that purpose. FOLLOWUP: She will follow up with her primary care physician in 1 week. She will stay on 2000 calories ADA diet with low salt. ACTIVITIES: As tolerated. Job ID: [id number]
== END 2019-10-14 11:11 | disposition home or self-care (01) | DRG 175 ==
LOC: ERS 12:40 → CCU 15:20 → T4-B 10-12 15:10
PROVIDERS: ADMIT Emergency Medicine; ATTEND Internal Medicine
DX: I26.09 Other pulmonary embolism with acute cor pulmonale (principal); J96.01 Acute respiratory failure with hypoxia; I12.9 Hypertensive chronic kidney disease with stage 1 through stage 4 chronic kidney disease, or unspecified chronic kidney disease; E11.22 Type 2 diabetes mellitus with diabetic chronic kidney disease; I16.0 Hypertensive urgency; N18.3 Chronic kidney disease, stage 3 (moderate); Z96.653 Presence of artificial knee joint, bilateral; Z98.1 Arthrodesis status; Z86.73 Personal history of transient ischemic attack (TIA), and cerebral infarction without residual deficits; Z79.4 Long term (current) use of insulin; Z90.49 Acquired absence of other specified parts of digestive tract; Z90.710 Acquired absence of both cervix and uterus; Z86.718 Personal history of other venous thrombosis and embolism; Z79.01 Long term (current) use of anticoagulants
CPT/HCPCS: 36415; 36416; 37195; 71045; 71275; 80048; 80053; 83880; 84484; 85014; 85018; 85025; 85049; 85730; 93306; 94760; 96361; 96365; 99292; J1644; J2997; J7050; Q9967

== ENCOUNTER 2020-11-13 10:15 | Inpatient (IN) | payer MEDICARE ==
[2020-11-13] MEDS ORDERED: niCARdipine 20MG In NaCl 0 MG/0 ML BAG ONE (10:20)
[2020-11-13 10:44] LABS: #Basophils 0.1 thou/uL (0.0-0.2); #Eosinphils 0.2 thou/uL (0.0-0.7); #Lymphocytes 3.3 thou/uL (1.20-3.40); #Monocytes 0.7 thou/uL (0.11-0.59); #Neutrophils 5.3 thou/uL (1.40-6.50); %Basophils 1.4 % (0.0-1.0); %Eosinophils 1.7 % (0.0-10.0); %Lymphocytes 34.4 % (21.0-51.0); %Neutrophils 55.5 % (42.0-75.0); Mean Corpuscular HGB CONC 32.7 g/dL (32.0-36.0); Mean Corpuscular Hemoglobin 32.6 pg (27.0-31.0); Mean Corpuscular Volume 99.6 fL (78.0-98.0); Mean Platelet Volume 8.1 fL (7.4-10.4); Platelet Count 227 thou/uL (130-400); RBC Distribution Width 12.8 % (11.5-14.5); Red Blood Cell (RBC) Count 4.91 mill/uL (4.20-5.40); White Blood Cell (WBC) Count 9.5 thou/uL (4.8-10.8)
[2020-11-13 10:50] LABS: INR-International Normal Ratio 1.1; PTT 27.6 sec (22.9-36.1); Prothrombin Time 14.3 sec (12.0-14.7)
[2020-11-13 11:00] LABS: ALT (SGPT) 18 U/L (8-55); AST (SGOT) 19 U/L (5-34); Albumin 4.3 g/dL (3.4-4.8); Alkaline Phosphatase 96 U/L (40-110); Anion Gap 14 mmol/L (10-20); BUN (Urea Nitrogen) 26 mg/dL (9.8-20.1); Bilirubin, Total 0.4 mg/dL (0.2-1.2); CK (CPK) 36 U/L (29-168); Calc. Creatinine Clearance 0 mL/min (70-130); Calcium 11.1 mg/dL (7.8-10.44); Carbon Dioxide 30 mmol/L (23-31); Chloride 102 mmol/L (98-107); Globulin 3.4 g/dL (2.4-3.5); Glucose 138 mg/dL (83-110); Potassium 4.6 mmol/L (3.5-5.1); Protein, Total 7.7 g/dL (5.8-8.1); Sodium 141 mmol/L (136-145)
[2020-11-13] MEDS ORDERED: Iopamidol 370 76% 100 ML VIAL ONE (11:23)
[2020-11-13] MEDS ORDERED: HUM PROTHROMBIN CPLX IV SCH (11:45)
[2020-11-13] MEDS ORDERED: [UNRECOGNIZED DRUG - OTHER] IV SCH (11:45)
[2020-11-13] MEDS ORDERED: HUMAN PROTHROMBIN COMPLX IV SCH (11:45)
[2020-11-13] MEDS ORDERED: niCARdipine 20MG In NaCl 20 MG/200 ML BAG ONE ×2 (11:51→14:48)
[2020-11-13] MEDS ORDERED: Electrolyte Replacement Protocol 1 EACH IVPB ONE (12:07)
[2020-11-13] MEDS ORDERED: Dextrose 50% Abboject 50 ML SYRINGE SLOW IVP PRN ×2 (12:08→19:22)
[2020-11-13] MEDS ORDERED: HumaLOG 300 UNITS/3 ML VIAL SC PRN (12:08)
[2020-11-13] MEDS ORDERED: Dextrose 5% in Water 1,000 ML IV PRN (12:08)
[2020-11-13] MEDS ORDERED: niCARdipine 25 MG in Sodium Chloride 0.9% 250 ML 240 ML IVPB SCH (12:15)
[2020-11-13] MEDS ORDERED: Electrolyte Replacement Protocol FS PRN (12:30)
[2020-11-13 13:13] LABS: SARS-CoV-2 NAA Rapid Test Not Detected (NotDetected)
[2020-11-13 14:05] LABS: Chloride 101 mmol/L (98-107); Potassium 4.1 mmol/L (3.5-5.1); Sodium 139 mmol/L (136-145)
[2020-11-13 14:06] LABS: Calcium 11.3 mg/dL (7.8-10.44); Glucose 108 mg/dL (83-110)
[2020-11-13 14:08] LABS: Anion Gap 17 mmol/L (10-20); Carbon Dioxide 25 mmol/L (23-31)
[2020-11-13 14:09] LABS: Calc. Creatinine Clearance 0 mL/min (70-130)
[2020-11-13 14:10] LABS: BUN (Urea Nitrogen) 22 mg/dL (9.8-20.1)
[2020-11-13] MEDS ORDERED: Dextrose 50% Abboject 50 ML SYRINGE ONE (19:55)
[2020-11-13] MEDS: Atorvastatin Calcium 40 MG TAB PO SCH (20:15)
[2020-11-14 01:04] LABS: Bilirubin Negative (Negative); Blood, Urine 1+ (Negative); Clarity Turbid (Clear); Glucose, Urine (Dipstick) 70 mg/dL (Negative); Ketone, Urine Negative (Negative); Leukocyte 250 Leu/uL (Negative); Nitrite Negative (Negative); Protein, Urine (Dipstick) Negative (Neg-Trace); RBC/HPF 0-3 HPF (0-3); Specific Gravity, Urine 1.012 (1.002-1.036); Squamous Epithelial 0-3 HPF (0-3); Urobilinogen Normal mg/dL (Less than 2); WBC/HPF 21-50 HPF (0-3); pH, Urine 7.5 (5.0-9.0)
[2020-11-14 01:05] LABS: Bacteria/HPF 1+ HPF (None Seen)
[2020-11-14] MEDS ORDERED: hydrALAZINE 20 MG/ML VIAL ONE (11:42)
[2020-11-14] MEDS: hydrALAZINE 20 MG/ML VIAL SLOW IVP PRN ×2 (11:46→16:32)
[2020-11-14 12:29] LABS: INR-International Normal Ratio 0.9; Prothrombin Time 12.1 sec (12.0-14.7)
[2020-11-14 14:01] LABS: Cardiac Risk 4.9 (Less than 4.5)
[2020-11-14 15:15] LABS: INR-International Normal Ratio 0.9; Prothrombin Time 12.4 sec (12.0-14.7)
[2020-11-14 15:48] LABS: Thyroid Stimulating Hormone 2.2458 uIU/mL (0.35-4.94); Vitamin D, 25 Hydroxy 28.3 ng/ml (> 30.0)
[2020-11-14] MEDS: cefTRIAXone\\ROCEPHIN 1 GM in Sodium Chloride 0.9% 100 ML IVPB SCH (16:31)
[2020-11-14] MEDS: HumaLOG 300 UNITS/3 ML VIAL SC PRN (18:24)
[2020-11-14] MEDS: Atorvastatin Calcium 40 MG TAB PO SCH (21:25)
[2020-11-15] MEDS: hydrALAZINE 20 MG/ML VIAL SLOW IVP PRN (05:08)
[2020-11-15] MEDS ORDERED: Lidocaine 1% (PF) 30 ML VIAL ONE (09:37)
[2020-11-15] MEDS ORDERED: Iopamidol 370 76% 50 ML VIAL FS ONE (11:10)
[2020-11-15] MEDS: cefTRIAXone\\ROCEPHIN 1 GM in Sodium Chloride 0.9% 100 ML IVPB SCH (14:01)
[2020-11-15] MEDS: metFORMIN 500 MG TAB PO SCH (20:01)
[2020-11-15] MEDS: Atorvastatin Calcium 40 MG TAB PO SCH (20:01)
[2020-11-15] MEDS: Atenolol 50 MG TAB PO SCH (20:01)
[2020-11-16] MEDS: Losartan 25 MG TAB PO SCH (10:26)
[2020-11-16] MEDS: Atenolol 50 MG TAB PO SCH ×2 (10:27→20:49)
[2020-11-16] MEDS: metFORMIN 500 MG TAB PO SCH ×2 (10:27→20:49)
[2020-11-16] MEDS: cefTRIAXone\\ROCEPHIN 1 GM in Sodium Chloride 0.9% 100 ML IVPB SCH (14:59)
[2020-11-16] MEDS ORDERED: Amlodipine 5 MG TAB PO SCH (18:15)
[2020-11-16] MEDS: Atorvastatin Calcium 40 MG TAB PO SCH (20:49)
[2020-11-17] MEDS: Losartan 25 MG TAB PO SCH (09:16)
[2020-11-17] MEDS: metFORMIN 500 MG TAB PO SCH ×2 (09:17→21:54)
[2020-11-17] MEDS: Atenolol 50 MG TAB PO SCH ×2 (09:20→21:54)
[2020-11-17] MEDS: Amlodipine 5 MG TAB PO SCH (09:21)
[2020-11-17] MEDS: HumaLOG 300 UNITS/3 ML VIAL SC PRN (11:52)
[2020-11-17 19:37] LABS: Alpha 1 - Ur 3.5 % (.); Alpha 2 - Ur 6.9 % (.); Beta-Ur 15.2 % (.); Gamma-Ur 13.3 % (.); M-Spike,% Not Observed % (Not Observed); Protein, Urine 16.9 mg/dL (Not Estab.)
[2020-11-17] MEDS: Atorvastatin Calcium 40 MG TAB PO SCH (21:54)
[2020-11-18] MEDS: metFORMIN 500 MG TAB PO SCH ×2 (08:22→20:58)
[2020-11-18] MEDS: Amlodipine 5 MG TAB PO SCH ×2 (08:22→20:58)
[2020-11-18] MEDS: Atenolol 50 MG TAB PO SCH ×2 (08:23→20:57)
[2020-11-18] MEDS: Losartan 25 MG TAB PO SCH (08:23)
[2020-11-18] MEDS: Atorvastatin Calcium 40 MG TAB PO SCH (20:58)
[2020-11-19] MEDS: Losartan 25 MG TAB PO SCH (09:24)
[2020-11-19] MEDS: Amlodipine 5 MG TAB PO SCH ×2 (09:24→20:48)
[2020-11-19] MEDS: Atenolol 50 MG TAB PO SCH ×2 (09:24→20:48)
[2020-11-19] MEDS: metFORMIN 500 MG TAB PO SCH ×2 (09:24→20:47)
[2020-11-19 09:47] LABS: Anion Gap 16 mmol/L (10-20); BUN (Urea Nitrogen) 29 mg/dL (9.8-20.1); Calc. Creatinine Clearance 67 mL/min (70-130); Carbon Dioxide 27 mmol/L (23-31); Chloride 105 mmol/L (98-107); Glucose 209 mg/dL (83-110); Potassium 4.1 mmol/L (3.5-5.1); Sodium 144 mmol/L (136-145)
[2020-11-19] MEDS: HumaLOG 300 UNITS/3 ML VIAL SC PRN (11:54)
[2020-11-19] MEDS ORDERED: Loperamide HCl 1 MG/7.5 ML UDCUP PO PRN (19:27)
[2020-11-19] MEDS: Atorvastatin Calcium 40 MG TAB PO SCH (20:47)
[2020-11-20] MEDS ORDERED: Magnesium 2 GM/50 ML 2 GM in Premix Bag 1 BAG IVPB SCH (08:15)
[2020-11-20] MEDS ORDERED: Polyethylene Glycol 3350 17 GM Packet PO SCH (09:00)
[2020-11-20] MEDS: Amlodipine 5 MG TAB PO SCH (10:30)
[2020-11-20] MEDS: metFORMIN 500 MG TAB PO SCH (10:31)
[2020-11-20] MEDS: Atenolol 50 MG TAB PO SCH (10:31)
[2020-11-20] MEDS: Losartan 25 MG TAB PO SCH (10:38)
[2020-11-20] MEDS ORDERED: Magnesium Oxide 400 MG TAB PO SCH (11:30)
[2020-11-20] MEDS: HumaLOG 300 UNITS/3 ML VIAL SC PRN (11:54)
[2020-11-20 13:16] LABS: A/G Ratio 1.1 (0.7-1.7); Albumin 3.9 g/dL (2.9-4.4); Alpha 1 0.2 g/dL (0.0-0.4); Alpha 2 0.8 g/dL (0.4-1.0); Beta 1.4 g/dL (0.7-1.3); Gamma 1.2 g/dL (0.4-1.8); Globulin, Total 3.6 g/dL (2.2-3.9); M-Spike Not Observed g/dL (Not Observed)
[2020-11-20 13:52] VITALS: BMI 33.7
[2020-11-20 20:25] VITALS: BP 143/59; TEMP 98
== END 2020-11-20 21:27 | DRG 64 ==
LOC: ERS 10:15 → ERHOLD 11:53 → 2SE 11-14 16:04
PROVIDERS: ADMIT Internal Medicine; ATTEND Internal Medicine
PROC: 06H03DZ Insertion of Intraluminal Device into Inferior Vena Cava, Percutaneous Approach (ICD-10-PCS; principal; 2020-11-15)
DX: I61.9 Nontraumatic intracerebral hemorrhage, unspecified (principal); J96.01 Acute respiratory failure with hypoxia; G81.94 Hemiplegia, unspecified affecting left nondominant side; N39.0 Urinary tract infection, site not specified; R29.810 Facial weakness; M19.90 Unspecified osteoarthritis, unspecified site; F03.90 Unspecified dementia, unspecified severity, without behavioral disturbance, psychotic disturbance, mood disturbance, and anxiety; I67.1 Cerebral aneurysm, nonruptured; Z96.653 Presence of artificial knee joint, bilateral; E11.22 Type 2 diabetes mellitus with diabetic chronic kidney disease; I12.9 Hypertensive chronic kidney disease with stage 1 through stage 4 chronic kidney disease, or unspecified chronic kidney disease; N18.31 Chronic kidney disease, stage 3a; Z20.822 Contact with and (suspected) exposure to COVID-19; R47.1 Dysarthria and anarthria; R19.7 Diarrhea, unspecified; E83.52 Hypercalcemia; B96.4 Proteus (mirabilis) (morganii) as the cause of diseases classified elsewhere; Z79.899 Other long term (current) drug therapy; Z79.84 Long term (current) use of oral hypoglycemic drugs; Z86.73 Personal history of transient ischemic attack (TIA), and cerebral infarction without residual deficits; Z90.49 Acquired absence of other specified parts of digestive tract; Z90.710 Acquired absence of both cervix and uterus; Z86.718 Personal history of other venous thrombosis and embolism; Z79.01 Long term (current) use of anticoagulants; Z86.711 Personal history of pulmonary embolism; Z98.890 Other specified postprocedural states
CPT/HCPCS: 0240U; 36415; 36416; 37191; 70450; 70496; 70498; 71045; 76536; 76942; 80048; 80053; 80061; 81003; 81015; 82306; 82330; 82550; 83735; 83970; 84165; 84166; 84443; 84484; 85025; 85610; 85730; 87045; 87046; 87077; 87086; 87186; 87324; 87328; 87329; 87427; 87449; 93005; 93010; 93306; 95712; 95819; 95957; 96365; 96366; 96367; C1880; C9132; J0360; J0696; J1815; J2001; J2997; J3490; J7050; Q9967

== ENCOUNTER 2021-01-21 08:12 | Outpatient (CLI) | payer MEDICARE | END 2021-01-21 08:13 | disposition home or self-care (01) | LOC: BICCT 08:12 | PROVIDERS: ATTEND Neurological Surgery | DX: I62.9 Nontraumatic intracranial hemorrhage, unspecified (principal) | CPT/HCPCS: 70450 ==

== ENCOUNTER 2022-04-05 09:51 | Outpatient (CLI) | payer MEDICARE | END 2022-04-05 09:52 | disposition home or self-care (01) | LOC: BICCT 09:51 | PROVIDERS: ATTEND Neurological Surgery | DX: I62.9 Nontraumatic intracranial hemorrhage, unspecified (principal) | CPT/HCPCS: 70450 ==

== ENCOUNTER 2024-05-26 12:05 | Inpatient (IN) | payer MEDICARE ==
[2024-05-26] MEDS ORDERED: Iopamidol-370 76% 500 ML MDV (1 ML CHARGE) ONE (12:45)
[2024-05-26 13:26] LABS: #Basophils Less than 0.03 10x3/uL (0.0-0.2); %Basophils 0.2 % (0.0-1.0); %Eosinophils 1.1 % (0.0-10.0); %Lymphocytes 21.5 % (21.0-51.0); %Monocytes 9.5 % (0.0-10.0); %Neutrophils 67.5 % (42.0-75.0); Hematocrit 43.1 % (36.0-47.0); Hemoglobin 14.1 g/dL (12.0-16.0); Mean Corpuscular HGB CONC 32.7 g/dL (32.0-36.0); Mean Corpuscular Hemoglobin 31.7 pg (27.0-31.0); Mean Corpuscular Volume 96.9 fL (78.0-98.0); Mean Platelet Volume 10.2 fL (7.4-10.4); Platelet Count 220 10x3/uL (130-400); RBC Distribution Width 13.5 % (11.5-14.5); Red Blood Cell (RBC) Count 4.45 mill/uL (4.20-5.40)
[2024-05-26 13:44] LABS: ALT (SGPT) 19 U/L (8-55); AST (SGOT) 20 U/L (5-34); Albumin 3.9 g/dL (3.4-4.8); Alkaline Phosphatase 85 U/L (40-110); Anion Gap 15 mmol/L (10-20); BUN (Urea Nitrogen) 15 mg/dL (9.8-20.1); Bilirubin, Total 1.1 mg/dL (0.2-1.2); Calc. Creatinine Clearance 0 mL/min (70-130); Calcium 10.8 mg/dL (7.8-10.44); Carbon Dioxide 26 mmol/L (23-31); Chloride 107 mmol/L (98-107); Estimated GFR 51; Globulin 3.5 g/dL (2.4-3.5); Glucose 104 mg/dL (83-110); Lipase 32 U/L (8-78); Magnesium 2.2 mg/dL (1.6-2.6); Potassium 3.6 mmol/L (3.5-5.1); Protein, Total 7.4 g/dL (5.8-8.1); Sodium 144 mmol/L (136-145)
[2024-05-26 13:47] LABS: Troponin I Less than 0.010 ng/mL (< 0.028)
[2024-05-26 13:49] LABS: Bilirubin Negative (Negative); Blood, Urine Negative (Negative); CAUTI Indications for Culture Alt mental st,lethar; Clarity Turbid (Clear); Glucose, Urine (Dipstick) Normal (Negative); Ketone, Urine Negative (Negative); Leukocyte 250 Leu/uL (Negative); Nitrite 1+ (Negative); Protein, Urine (Dipstick) 20 mg/dL (Neg-Trace); RBC/HPF 0-3 HPF (0-3); Specific Gravity, Urine 1.002 (1.002-1.036); Squamous Epithelial 0-3 HPF (0-3); Urobilinogen Normal mg/dL (Less than 2); WBC/HPF Greater than 50 HPF (0-3)
[2024-05-26 13:52] LABS: Bacteria/HPF 1+ HPF (None Seen)
[2024-05-26 13:53] LABS: Urine Culture Reflex Yes Yes
[2024-05-26] MEDS ORDERED: cefTRIAXone (ROCEPHIN) 1 GM VIAL ONE (14:12)
[2024-05-26] MEDS ORDERED: Sodium Chloride 0.9% 100 ML ONE (14:13)
[2024-05-26] MEDS ORDERED: Morphine 2 MG/ML VIAL ONE (17:05)
[2024-05-26] MEDS ORDERED: Ondansetron PF 4 MG/2 ML Vial ONE (17:05)
[2024-05-26] MEDS ORDERED: Ondansetron PF 4 MG/2 ML Vial IVP PRN (17:31)
[2024-05-26] MEDS ORDERED: Acetaminophen 325 MG TAB PO PRN (17:31)
[2024-05-26] MEDS ORDERED: Dextrose 5% in Water 1,000 ML IV PRN (17:33)
[2024-05-26] MEDS ORDERED: Glucagon 1 MG/ML KIT IM PRN (17:33)
[2024-05-26] MEDS ORDERED: Dextrose 50% Abboject 50 ML SYRINGE SLOW IVP PRN (17:33)
[2024-05-26] MEDS ORDERED: hydrALAZINE 20 MG/ML VIAL SLOW IVP PRN (17:35)
[2024-05-26 18:36] LABS: Bacteria/HPF None Seen HPF (None Seen); Bilirubin Negative (Negative); Blood, Urine Negative (Negative); CAUTI Indications for Culture Alt mental st,lethar; Clarity Clear (Clear); Glucose, Urine (Dipstick) Normal (Negative); Ketone, Urine 10 mg/dL (Negative); Leukocyte 250 Leu/uL (Negative); Nitrite Negative (Negative); Protein, Urine (Dipstick) 10 mg/dL (Neg-Trace); RBC/HPF 0-3 HPF (0-3); Specific Gravity, Urine 1.008 (1.002-1.036); Squamous Epithelial None Seen HPF (0-3); Urobilinogen Normal mg/dL (Less than 2); WBC/HPF Greater than 50 HPF (0-3)
[2024-05-26 21:10] VITALS: BMI 25.0
[2024-05-26] MEDS: hydrALAZINE 25 MG TAB PO SCH (21:58)
[2024-05-26] MEDS: Atenolol 50 MG TAB PO SCH (22:01)
[2024-05-26] MEDS: Famotidine/PF 20 mg/2ml Vial SLOW IVP SCH (22:02)
[2024-05-26] MEDS: Atorvastatin Calcium 40 MG TAB PO SCH (22:02)
[2024-05-26] MEDS: Memantine 10 MG TAB PO SCH (22:15)
[2024-05-26] MEDS: Ziprasidone 20 MG VIAL IM SCH (22:15)
[2024-05-26] MEDS: Sterile Water 10 ML VIAL FS SCH (22:15)
[2024-05-26] MEDS: Lactated Ringer's 1,000 ML IV SCH (23:30)
[2024-05-27 04:53] LABS: #Basophils Less than 0.03 10x3/uL (0.0-0.2); #Eosinophils Less than 0.03 10x3/uL (0.0-0.7); %Basophils 0.2 % (0.0-1.0); %Eosinophils 0.1 % (0.0-10.0); %Lymphocytes 14.2 % (21.0-51.0); %Monocytes 8.3 % (0.0-10.0); %Neutrophils 76.7 % (42.0-75.0); Hematocrit 39.9 % (36.0-47.0); Hemoglobin 12.8 g/dL (12.0-16.0); Mean Corpuscular HGB CONC 32.1 g/dL (32.0-36.0); Mean Corpuscular Hemoglobin 32.5 pg (27.0-31.0); Mean Corpuscular Volume 101.3 fL (78.0-98.0); Mean Platelet Volume 10.1 fL (7.4-10.4); Platelet Count 208 10x3/uL (130-400); RBC Distribution Width 13.3 % (11.5-14.5); Red Blood Cell (RBC) Count 3.94 mill/uL (4.20-5.40)
[2024-05-27 05:11] LABS: Anion Gap 13 mmol/L (10-20); BUN (Urea Nitrogen) 12 mg/dL (9.8-20.1); Calc. Creatinine Clearance 59 mL/min (70-130); Calcium 10.1 mg/dL (7.8-10.44); Carbon Dioxide 25 mmol/L (23-31); Chloride 108 mmol/L (98-107); Estimated GFR 66; Glucose 120 mg/dL (83-110); Potassium 3.5 mmol/L (3.5-5.1); Sodium 142 mmol/L (136-145)
[2024-05-27] MEDS: FLU (Fluad Triv) TS24-25 (65UP)/MF59C/PF 45 MCG/0.5 ML Syringe IM ONE (08:15)
[2024-05-27] MEDS: Amlodipine 5 MG TAB PO SCH (08:26)
[2024-05-27] MEDS ORDERED: Lidocaine 1% PF 5 ML VIAL ONE (10:29)
[2024-05-27] MEDS ORDERED: Dexamethasone 20 MG/5 ML VIAL ONE (10:29)
[2024-05-27] MEDS ORDERED: PROPOFOL 20 ML ONE (10:29)
[2024-05-27] MEDS ORDERED: Ondansetron PF 4 MG/2 ML Vial ONE (10:29)
[2024-05-27] MEDS ORDERED: Iopamidol 30 ML ONE (10:29)
[2024-05-27] MEDS ORDERED: hydrALAZINE 20 MG/ML VIAL ONE (12:03)
[2024-05-27] MEDS: cefTRIAXone\\ROCEPHIN 1 GM in Sodium Chloride 0.9% 100 ML IVPB SCH (13:12)
[2024-05-27] MEDS: Ziprasidone 20 MG VIAL IM SCH (22:28)
[2024-05-27] MEDS: Sterile Water 10 ML VIAL FS SCH (22:29)
[2024-05-28 06:36] LABS: #Basophils 0.03 10x3/uL (0.0-0.2); #Eosinophils Less than 0.03 10x3/uL (0.0-0.7); %Basophils 0.2 % (0.0-1.0); %Lymphocytes 14.1 % (21.0-51.0); %Monocytes 10.2 % (0.0-10.0); Hematocrit 41.6 % (36.0-47.0); Hemoglobin 13.7 g/dL (12.0-16.0); Mean Corpuscular HGB CONC 32.9 g/dL (32.0-36.0); Mean Corpuscular Hemoglobin 32.9 pg (27.0-31.0); Mean Corpuscular Volume 99.8 fL (78.0-98.0); Mean Platelet Volume 10.3 fL (7.4-10.4); Platelet Count 211 10x3/uL (130-400); RBC Distribution Width 13.3 % (11.5-14.5); Red Blood Cell (RBC) Count 4.17 mill/uL (4.20-5.40)
[2024-05-28 07:12] LABS: Anion Gap 14 mmol/L (10-20); BUN (Urea Nitrogen) 12 mg/dL (9.8-20.1); Calc. Creatinine Clearance 51 mL/min (70-130); Carbon Dioxide 27 mmol/L (23-31); Chloride 104 mmol/L (98-107); Estimated GFR 56; Glucose 133 mg/dL (83-110); Potassium 3.3 mmol/L (3.5-5.1); Sodium 142 mmol/L (136-145)
[2024-05-28] MEDS ORDERED: Electrolyte Replacement Protocol 1 EACH FS SCH (07:45)
[2024-05-28] MEDS: Potassium Chloride 20 MEQ TAB PO SCH (09:50)
[2024-05-28] MEDS: Famotidine/PF 20 mg/2ml Vial SLOW IVP SCH (09:51)
[2024-05-28] MEDS: QUEtiapine 25 MG TAB PO SCH (16:58)
[2024-05-28] MEDS: Insulin Lispro 100 UNIT/ML 10 ML VIAL SC PRN (16:58)
[2024-05-29 05:13] LABS: Anion Gap 18 mmol/L (10-20); BUN (Urea Nitrogen) 16 mg/dL (9.8-20.1); Calc. Creatinine Clearance 57 mL/min (70-130); Calcium 10.4 mg/dL (7.8-10.44); Carbon Dioxide 20 mmol/L (23-31); Chloride 109 mmol/L (98-107); Estimated GFR 64; Glucose 110 mg/dL (83-110); Potassium 3.9 mmol/L (3.5-5.1); Sodium 143 mmol/L (136-145)
[2024-05-29 06:08] LABS: #Basophils 0.03 10x3/uL (0.0-0.2); %Basophils 0.2 % (0.0-1.0); %Eosinophils 0.4 % (0.0-10.0); %Lymphocytes 17.5 % (21.0-51.0); %Monocytes 14.6 % (0.0-10.0); Hematocrit 39.9 % (36.0-47.0); Mean Corpuscular HGB CONC 32.6 g/dL (32.0-36.0); Mean Corpuscular Hemoglobin 32.2 pg (27.0-31.0); Mean Corpuscular Volume 98.8 fL (78.0-98.0); Platelet Count 218 10x3/uL (130-400); RBC Distribution Width 13.2 % (11.5-14.5); Red Blood Cell (RBC) Count 4.04 mill/uL (4.20-5.40)
[2024-05-30 05:49] LABS: #Basophils 0.03 10x3/uL (0.0-0.2); %Basophils 0.2 % (0.0-1.0); %Lymphocytes 14.4 % (21.0-51.0); %Monocytes 11.3 % (0.0-10.0); %Neutrophils 72.9 % (42.0-75.0); Hematocrit 42.1 % (36.0-47.0); Mean Corpuscular HGB CONC 33.3 g/dL (32.0-36.0); Mean Corpuscular Hemoglobin 31.6 pg (27.0-31.0); Mean Platelet Volume 11.3 fL (7.4-10.4); Platelet Count 170 10x3/uL (130-400); Red Blood Cell (RBC) Count 4.43 mill/uL (4.20-5.40)
[2024-05-30 06:41] LABS: Anion Gap 14 mmol/L (10-20); BUN (Urea Nitrogen) 14 mg/dL (9.8-20.1); Calc. Creatinine Clearance 61 mL/min (70-130); Calcium 10.8 mg/dL (7.8-10.44); Carbon Dioxide 28 mmol/L (23-31); Chloride 105 mmol/L (98-107); Estimated GFR 69; Glucose 151 mg/dL (83-110); Potassium 3.5 mmol/L (3.5-5.1); Sodium 143 mmol/L (136-145)
[2024-05-30] MEDS ORDERED: Electrolyte Replacement Protocol FS PRN (08:30)
[2024-05-30] MEDS: Potassium Chloride 20 MEQ TAB PO SCH (10:20)
[2024-05-30] MEDS: Megestrol Acetate 800 MG/20 ML UDCUP PO SCH (10:21)
[2024-05-30] MEDS: Amino Acids 4.25 %/Dextrose 5% 2,000 ML IV SCH (10:21)
[2024-05-31 05:41] LABS: #Basophils 0.04 10x3/uL (0.0-0.2); %Basophils 0.4 % (0.0-1.0); %Eosinophils 2.1 % (0.0-10.0); %Lymphocytes 21.6 % (21.0-51.0); %Monocytes 13.3 % (0.0-10.0); %Neutrophils 62.2 % (42.0-75.0); Hematocrit 43.9 % (36.0-47.0); Hemoglobin 14.1 g/dL (12.0-16.0); Mean Corpuscular HGB CONC 32.1 g/dL (32.0-36.0); Mean Corpuscular Hemoglobin 31.5 pg (27.0-31.0); Mean Corpuscular Volume 98.2 fL (78.0-98.0); Mean Platelet Volume 9.9 fL (7.4-10.4); Platelet Count 167 10x3/uL (130-400); RBC Distribution Width 12.9 % (11.5-14.5); Red Blood Cell (RBC) Count 4.47 mill/uL (4.20-5.40)
[2024-05-31 06:05] LABS: Anion Gap 11 mmol/L (10-20); BUN (Urea Nitrogen) 26 mg/dL (9.8-20.1); Calc. Creatinine Clearance 56 mL/min (70-130); Calcium 10.8 mg/dL (7.8-10.44); Carbon Dioxide 28 mmol/L (23-31); Chloride 106 mmol/L (98-107); Estimated GFR 62; Glucose 147 mg/dL (83-110); Potassium 3.3 mmol/L (3.5-5.1); Sodium 142 mmol/L (136-145)
[2024-05-31] MEDS: Potassium Chloride 20 MEQ TAB PO SCH (08:32)
[2024-05-31 14:33] VITALS: BMI 25.0
[2024-05-31] MEDS: QUEtiapine 25 MG TAB PO SCH (16:22)
[2024-05-31] MEDS: Ciprofloxacin 500 MG TAB PO SCH (20:18)
[2024-06-01 05:48] LABS: #Basophils 0.03 10x3/uL (0.0-0.2); %Basophils 0.3 % (0.0-1.0); %Eosinophils 3.3 % (0.0-10.0); %Lymphocytes 25.2 % (21.0-51.0); %Monocytes 13.3 % (0.0-10.0); %Neutrophils 57.6 % (42.0-75.0); Hematocrit 41.4 % (36.0-47.0); Hemoglobin 13.6 g/dL (12.0-16.0); Mean Corpuscular HGB CONC 32.9 g/dL (32.0-36.0); Mean Corpuscular Hemoglobin 31.8 pg (27.0-31.0); Mean Corpuscular Volume 96.7 fL (78.0-98.0); Mean Platelet Volume 10.3 fL (7.4-10.4); Platelet Count 191 10x3/uL (130-400); RBC Distribution Width 12.9 % (11.5-14.5); Red Blood Cell (RBC) Count 4.28 mill/uL (4.20-5.40)
[2024-06-01 06:08] LABS: Anion Gap 10 mmol/L (10-20); BUN (Urea Nitrogen) 31 mg/dL (9.8-20.1); Calc. Creatinine Clearance 59 mL/min (70-130); Calcium 11.1 mg/dL (7.8-10.44); Carbon Dioxide 27 mmol/L (23-31); Chloride 108 mmol/L (98-107); Estimated GFR 66; Glucose 151 mg/dL (83-110); Potassium 3.5 mmol/L (3.5-5.1); Sodium 141 mmol/L (136-145)
[2024-06-01] MEDS: Potassium Chloride 20 MEQ TAB PO SCH (09:32)
[2024-06-02 04:40] VITALS: TEMP 97.6
[2024-06-02 09:14] VITALS: BP 148/95
[2024-06-02] MEDS: Cefdinir 300 MG CAP PO SCH (13:02)
[2024-06-02] MEDS ORDERED: Cefpodoxime 200 MG TAB PO SCH (21:00)
[2024-06-02] MEDS ORDERED: Cefdinir 300 MG CAP PO SCH (21:00)
[2024-06-15] MEDS ORDERED: Ciprofloxacin 500 MG TAB PO SCH (06:00)
== END 2024-06-02 13:30 | disposition home or self-care (01) | DRG 659 ==
LOC: ERS 12:05 → MSONC 16:55 → OBSVTOIN 05-28 08:57
PROVIDERS: ADMIT Internal Medicine; ATTEND Student in an Organized Health Care Education/Training Program
PROC: 4A00X4Z Measurement of Central Nervous Electrical Activity, External Approach (ICD-10-PCS; 2024-05-26)
PROC: BT1F1ZZ Fluoroscopy of Left Kidney, Ureter and Bladder using Low Osmolar Contrast (ICD-10-PCS; principal; 2024-05-27)
PROC: 0T778DZ Dilation of Left Ureter with Intraluminal Device, Via Natural or Artificial Opening Endoscopic (ICD-10-PCS; 2024-05-27)
DX: N13.6 Pyonephrosis (principal); G93.41 Metabolic encephalopathy; F03.918 Unspecified dementia, unspecified severity, with other behavioral disturbance; E11.9 Type 2 diabetes mellitus without complications; E78.5 Hyperlipidemia, unspecified; I10 Essential (primary) hypertension; Z90.49 Acquired absence of other specified parts of digestive tract; Z90.710 Acquired absence of both cervix and uterus; Z98.890 Other specified postprocedural states; Z66 Do not resuscitate; Z79.899 Other long term (current) drug therapy; Z79.4 Long term (current) use of insulin
CPT/HCPCS: 36415; 36416; 51701; 70450; 71045; 74177; 74420; 80048; 80053; 81001; 82140; 83605; 83690; 83735; 84443; 84484; 85025; 87077; 87086; 87186; 87428; 93005; 96372; 96374; 96375; 96376; C1769; C2617; G0378; J0360; J0696; J1100; J1815; J2272; J2405; J2704; J3486; J3490; J7120; Q9967

== ENCOUNTER 2024-06-04 14:46 | Inpatient (IN) | payer MEDICARE ==
[~2024-06-04 14:46] MED LIST: Iopamidol-370 76% 500 ML MDV (1 ML CHARGE) ONE
[2024-06-04 16:37] LABS: Actual Bicarbonate (HCO3v) 21.1 mEq/L (22-28); Analyzer IN Cardio ER; Base Excess -4.5 mEq/L (-2.0 to +3.0); Chloride (VBG) 101 mmol/L (98-106); Hematocrit-VBG 44 % (36.0-47.0); Hemoglobin (Hb) 14.9 g/dL (11.7-16.1); Potassium (VBG) 4.63 mmol/L (3.70-5.30); Sodium 150 mmol/L (133-146); pH (venous) 7.334 (7.32-7.43)
[2024-06-04 16:38] LABS: #Basophils 0.03 10x3/uL (0.0-0.2); %Basophils 0.2 % (0.0-1.0); %Eosinophils 0.8 % (0.0-10.0); %Lymphocytes 20.7 % (21.0-51.0); %Monocytes 10.3 % (0.0-10.0); %Neutrophils 67.7 % (42.0-75.0); Hematocrit 40.4 % (36.0-47.0); Hemoglobin 13.1 g/dL (12.0-16.0); Mean Corpuscular HGB CONC 32.4 g/dL (32.0-36.0); Mean Corpuscular Hemoglobin 31.4 pg (27.0-31.0); Mean Corpuscular Volume 96.9 fL (78.0-98.0); Mean Platelet Volume 10.7 fL (7.4-10.4); Platelet Count 248 10x3/uL (130-400); RBC Distribution Width 13.7 % (11.5-14.5); Red Blood Cell (RBC) Count 4.17 mill/uL (4.20-5.40)
[2024-06-04 16:55] LABS: CRP,High Sensitivity (Inhouse) 1.21 mg/dL (< or = 0.5)
[2024-06-04 16:56] LABS: ALT (SGPT) 20 U/L (8-55); AST (SGOT) 21 U/L (5-34); Albumin 3.4 g/dL (3.4-4.8); Alkaline Phosphatase 80 U/L (40-110); Anion Gap 12 mmol/L (10-20); BUN (Urea Nitrogen) 74 mg/dL (9.8-20.1); Bilirubin, Total 0.5 mg/dL (0.2-1.2); Calc. Creatinine Clearance 0 mL/min (70-130); Calcium 12.1 mg/dL (7.8-10.44); Carbon Dioxide 26 mmol/L (23-31); Chloride 109 mmol/L (98-107); Estimated GFR 16; Globulin 3.6 g/dL (2.4-3.5); Glucose 150 mg/dL (83-110); Lipase 68 U/L (8-78); Magnesium 2.7 mg/dL (1.6-2.6); Potassium 4.2 mmol/L (3.5-5.1); Sodium 143 mmol/L (136-145)
[2024-06-04 20:29] LABS: Bilirubin Negative (Negative); Blood, Urine 3+ (Negative); CAUTI Indications for Culture Dysuria,urgency,freq; Clarity Turbid (Clear); Glucose, Urine (Dipstick) Normal (Negative); Ketone, Urine Negative (Negative); Leukocyte 500 Leu/uL (Negative); Nitrite Negative (Negative); Protein, Urine (Dipstick) 70 mg/dL (Neg-Trace); Specific Gravity, Urine 1.024 (1.002-1.036); Squamous Epithelial 0-3 HPF (0-3); Urobilinogen Normal mg/dL (Less than 2)
[2024-06-04 20:54] LABS: Bacteria/HPF 1+ HPF (None Seen)
[2024-06-04 20:58] LABS: RBC/HPF 21-50 HPF (0-3); WBC/HPF 21-50 HPF (0-3)
[2024-06-04 20:59] LABS: Urine Culture Reflex Yes Yes
[2024-06-04 23:48] VITALS: BMI 24.1
[2024-06-04] MEDS ORDERED: Ondansetron ODT 4 MG TAB PO PRN (23:53)
[2024-06-04] MEDS ORDERED: Ondansetron PF 4 MG/2 ML Vial IVP PRN (23:53)
[2024-06-04] MEDS ORDERED: Acetaminophen 650 MG Suppository PR PRN (23:53)
[2024-06-05 04:34] LABS: #Basophils 0.03 10x3/uL (0.0-0.2); %Basophils 0.3 % (0.0-1.0); %Eosinophils 1.5 % (0.0-10.0); %Monocytes 10.8 % (0.0-10.0); %Neutrophils 66.1 % (42.0-75.0); Hematocrit 40.2 % (36.0-47.0); Hemoglobin 12.9 g/dL (12.0-16.0); Mean Corpuscular HGB CONC 32.1 g/dL (32.0-36.0); Mean Corpuscular Hemoglobin 31.9 pg (27.0-31.0); Mean Corpuscular Volume 99.3 fL (78.0-98.0); Mean Platelet Volume 10.8 fL (7.4-10.4); Platelet Count 246 10x3/uL (130-400); RBC Distribution Width 13.5 % (11.5-14.5); Red Blood Cell (RBC) Count 4.05 mill/uL (4.20-5.40)
[2024-06-05 04:54] LABS: Anion Gap 11 mmol/L (10-20); BUN (Urea Nitrogen) 56 mg/dL (9.8-20.1); Calc. Creatinine Clearance 24 mL/min (70-130); Calcium 11.5 mg/dL (7.8-10.44); Carbon Dioxide 24 mmol/L (23-31); Chloride 114 mmol/L (98-107); Estimated GFR 25; Glucose 126 mg/dL (83-110); Sodium 145 mmol/L (136-145)
[2024-06-05 05:34] LABS: Campy jejuni + coli by PCR Negative (Negative); STEC Shiga Toxin 1+2 Negative (Negative); Salmonella spp. by PCR Negative (Negative); Shigella spp + EIEC by PCR Negative (Negative)
[2024-06-05] MEDS: Acetaminophen 325 MG TAB PO SCH (05:41)
[2024-06-05] MEDS: Atenolol 50 MG TAB PO SCH (09:29)
[2024-06-05] MEDS: Amlodipine 5 MG TAB PO SCH (09:29)
[2024-06-05] MEDS: Cholecalciferol 1,000 UNITS (25 MCG) TAB PO SCH (09:30)
[2024-06-05] MEDS: hydrALAZINE 25 MG TAB PO SCH (09:31)
[2024-06-05] MEDS: Ezetimibe 10 MG TAB PO SCH (09:31)
[2024-06-05] MEDS: ASCORBIC ACID 1000 MG PO SCH (09:46)
[2024-06-05] MEDS: Famotidine/PF 20 mg/2ml Vial SLOW IVP SCH (10:04)
[2024-06-05] MEDS: Enoxaparin 30 MG (0.3 mL) SYRINGE SC SCH (10:05)
[2024-06-05] MEDS: Cefdinir 300 MG CAP PO SCH (11:30)
[2024-06-05] MEDS ORDERED: Dextrose 5% in Water 1,000 ML IV PRN (12:05)
[2024-06-05] MEDS ORDERED: Insulin Lispro 100 UNIT/ML 10 ML VIAL SC PRN (12:05)
[2024-06-05] MEDS ORDERED: Dextrose 50% Abboject 50 ML SYRINGE SLOW IVP PRN (12:05)
[2024-06-05] MEDS ORDERED: Glucagon 1 MG/ML KIT IM PRN (12:05)
[2024-06-05] MEDS: Famotidine 20 MG TAB PO SCH (12:31)
[2024-06-05] MEDS: Nitrofurantoin Monohyd/M-Cryst 100 MG CAP PO SCH (12:32)
[2024-06-05] MEDS: Multivit, Therapeutic 1 TAB PO SCH (12:32)
[2024-06-05] MEDS: Memantine 10 MG TAB PO SCH (12:32)
[2024-06-05] MEDS: metFORMIN 500 MG TAB PO SCH (12:32)
[2024-06-05] MEDS ORDERED: Potassium Chloride 20 MEQ TAB PO ONE ×2 (16:00→21:00)
[2024-06-05] MEDS: Atorvastatin Calcium 40 MG TAB PO SCH (20:54)
[2024-06-06 04:45] LABS: #Basophils 0.03 10x3/uL (0.0-0.2); %Basophils 0.3 % (0.0-1.0); %Eosinophils 1.7 % (0.0-10.0); %Lymphocytes 25.1 % (21.0-51.0); %Monocytes 11.1 % (0.0-10.0); %Neutrophils 61.5 % (42.0-75.0); Hemoglobin 13.4 g/dL (12.0-16.0); Mean Corpuscular HGB CONC 31.2 g/dL (32.0-36.0); Mean Corpuscular Hemoglobin 31.2 pg (27.0-31.0); Mean Platelet Volume 11.1 fL (7.4-10.4); Platelet Count 199 10x3/uL (130-400); RBC Distribution Width 13.6 % (11.5-14.5)
[2024-06-06 04:52] LABS: Anion Gap 14 mmol/L (10-20); BUN (Urea Nitrogen) 43 mg/dL (9.8-20.1); Calc. Creatinine Clearance 29 mL/min (70-130); Calcium 11.4 mg/dL (7.8-10.44); Carbon Dioxide 24 mmol/L (23-31); Chloride 113 mmol/L (98-107); Estimated GFR 31; Glucose 121 mg/dL (83-110); Magnesium 2.2 mg/dL (1.6-2.6); Potassium 4.2 mmol/L (3.5-5.1); Sodium 147 mmol/L (136-145)
[2024-06-06] MEDS: Ascorbic Acid 500 mg Chewable Tablet PO SCH (09:49)
[2024-06-06] MEDS: Dextrose 5% in Water 1,000 ML IV SCH (12:55)
[2024-06-07 04:39] LABS: #Basophils 0.04 10x3/uL (0.0-0.2); %Basophils 0.3 % (0.0-1.0); %Eosinophils 1.3 % (0.0-10.0); %Lymphocytes 21.3 % (21.0-51.0); %Monocytes 13.2 % (0.0-10.0); %Neutrophils 63.4 % (42.0-75.0); Hematocrit 42.6 % (36.0-47.0); Hemoglobin 13.8 g/dL (12.0-16.0); Mean Corpuscular HGB CONC 32.4 g/dL (32.0-36.0); Mean Corpuscular Hemoglobin 31.6 pg (27.0-31.0); Mean Corpuscular Volume 97.5 fL (78.0-98.0); Mean Platelet Volume 11.3 fL (7.4-10.4); Platelet Count 194 10x3/uL (130-400); RBC Distribution Width 13.5 % (11.5-14.5); Red Blood Cell (RBC) Count 4.37 mill/uL (4.20-5.40)
[2024-06-07 04:54] LABS: Albumin 3.1 g/dL (3.4-4.8); Anion Gap 14 mmol/L (10-20); BUN (Urea Nitrogen) 35 mg/dL (9.8-20.1); Calc. Creatinine Clearance 31 mL/min (70-130); Calcium 11.1 mg/dL (7.8-10.44); Carbon Dioxide 24 mmol/L (23-31); Chloride 113 mmol/L (98-107); Estimated GFR 34; Glucose 187 mg/dL (83-110); Potassium 3.6 mmol/L (3.5-5.1); Sodium 147 mmol/L (136-145)
[2024-06-07] MEDS: Dextrose 5% in Water 1,000 ML IV SCH (16:59)
[2024-06-08 06:42] LABS: #Basophils 0.04 10x3/uL (0.0-0.2); %Basophils 0.3 % (0.0-1.0); %Eosinophils 1.1 % (0.0-10.0); %Lymphocytes 21.7 % (21.0-51.0); %Monocytes 12.5 % (0.0-10.0); %Neutrophils 64.1 % (42.0-75.0); Hematocrit 44.1 % (36.0-47.0); Mean Corpuscular HGB CONC 31.7 g/dL (32.0-36.0); Mean Corpuscular Hemoglobin 31.3 pg (27.0-31.0); Mean Corpuscular Volume 98.4 fL (78.0-98.0); Mean Platelet Volume 10.7 fL (7.4-10.4); Platelet Count 227 10x3/uL (130-400); RBC Distribution Width 13.2 % (11.5-14.5); Red Blood Cell (RBC) Count 4.48 mill/uL (4.20-5.40)
[2024-06-08 07:06] LABS: Anion Gap 15 mmol/L (10-20); BUN (Urea Nitrogen) 27 mg/dL (9.8-20.1); Calc. Creatinine Clearance 34 mL/min (70-130); Carbon Dioxide 21 mmol/L (23-31); Chloride 112 mmol/L (98-107); Estimated GFR 37; Glucose 153 mg/dL (83-110); Potassium 4.5 mmol/L (3.5-5.1); Sodium 143 mmol/L (136-145)
[2024-06-08] MEDS: cefTRIAXone\\ROCEPHIN 1 GM in Sodium Chloride 0.9% 100 ML IVPB SCH (10:45)
[2024-06-08] MEDS: FLU (Fluad Triv) TS24-25 (65UP)/MF59C/PF 45 MCG/0.5 ML Syringe IM ONE (10:48)
[2024-06-09 04:29] LABS: #Basophils 0.04 10x3/uL (0.0-0.2); %Basophils 0.3 % (0.0-1.0); %Eosinophils 0.9 % (0.0-10.0); %Lymphocytes 19.9 % (21.0-51.0); %Monocytes 11.2 % (0.0-10.0); %Neutrophils 67.2 % (42.0-75.0); Hematocrit 42.1 % (36.0-47.0); Mean Corpuscular HGB CONC 33.3 g/dL (32.0-36.0); Mean Corpuscular Volume 96.1 fL (78.0-98.0); Platelet Count 232 10x3/uL (130-400); RBC Distribution Width 13.2 % (11.5-14.5); Red Blood Cell (RBC) Count 4.38 mill/uL (4.20-5.40)
[2024-06-09 04:36] LABS: Anion Gap 14 mmol/L (10-20); BUN (Urea Nitrogen) 27 mg/dL (9.8-20.1); Calc. Creatinine Clearance 33 mL/min (70-130); Calcium 11.1 mg/dL (7.8-10.44); Carbon Dioxide 20 mmol/L (23-31); Chloride 109 mmol/L (98-107); Estimated GFR 36; Glucose 157 mg/dL (83-110); Potassium 3.4 mmol/L (3.5-5.1); Sodium 140 mmol/L (136-145)
[2024-06-09] MEDS: Potassium Chloride 20 MEQ in Lactated Ringer's 1,000 ML IV SCH (09:04)
[2024-06-10 04:15] LABS: #Basophils 0.04 10x3/uL (0.0-0.2); %Basophils 0.3 % (0.0-1.0); %Lymphocytes 19.2 % (21.0-51.0); %Neutrophils 69.2 % (42.0-75.0); Hematocrit 43.4 % (36.0-47.0); Hemoglobin 14.1 g/dL (12.0-16.0); Mean Corpuscular HGB CONC 32.5 g/dL (32.0-36.0); Mean Corpuscular Hemoglobin 31.6 pg (27.0-31.0); Mean Corpuscular Volume 97.3 fL (78.0-98.0); Mean Platelet Volume 11.2 fL (7.4-10.4); Platelet Count 262 10x3/uL (130-400); RBC Distribution Width 13.3 % (11.5-14.5); Red Blood Cell (RBC) Count 4.46 mill/uL (4.20-5.40)
[2024-06-10 04:44] LABS: Anion Gap 16 mmol/L (10-20); BUN (Urea Nitrogen) 30 mg/dL (9.8-20.1); Calc. Creatinine Clearance 27 mL/min (70-130); Calcium 11.5 mg/dL (7.8-10.44); Carbon Dioxide 23 mmol/L (23-31); Chloride 107 mmol/L (98-107); Estimated GFR 31; Glucose 110 mg/dL (83-110); Potassium 3.5 mmol/L (3.5-5.1); Sodium 142 mmol/L (136-145)
[2024-06-10] MEDS ORDERED: D5 0.9% NS w/ 20 mEq KCl 1,000 ML IV SCH (08:00)
[2024-06-10] MEDS: Megestrol Acetate 800 MG/20 ML UDCUP PO SCH (09:37)
[2024-06-10] MEDS: NS 0.9% w/ 20 MEQ KCL 1,000 ML/1,000 ML BAG IV SCH (09:39)
[2024-06-11 04:56] LABS: #Basophils Less than 0.03 10x3/uL (0.0-0.2); %Basophils 0.2 % (0.0-1.0); %Eosinophils 2.2 % (0.0-10.0); %Lymphocytes 20.2 % (21.0-51.0); %Monocytes 11.5 % (0.0-10.0); %Neutrophils 65.4 % (42.0-75.0); Hematocrit 39.9 % (36.0-47.0); Mean Corpuscular HGB CONC 32.6 g/dL (32.0-36.0); Mean Corpuscular Hemoglobin 31.6 pg (27.0-31.0); Mean Corpuscular Volume 96.8 fL (78.0-98.0); Mean Platelet Volume 11.7 fL (7.4-10.4); Platelet Count 150 10x3/uL (130-400); RBC Distribution Width 13.6 % (11.5-14.5); Red Blood Cell (RBC) Count 4.12 mill/uL (4.20-5.40)
[2024-06-11 05:03] LABS: Hemoglobin A1c 6.2 % (4.0-6.0)
[2024-06-11 06:00] LABS: Anion Gap 13 mmol/L (10-20); BUN (Urea Nitrogen) 27 mg/dL (9.8-20.1); Calc. Creatinine Clearance 38 mL/min (70-130); Carbon Dioxide 21 mmol/L (23-31); Chloride 115 mmol/L (98-107); Estimated GFR 46; Glucose 105 mg/dL (83-110); Sodium 145 mmol/L (136-145)
[2024-06-11 09:16] VITALS: BP 138/70
[2024-06-11 10:22] VITALS: TEMP 97.8
== END 2024-06-11 16:45 | DRG 683 ==
LOC: ERS 14:46 → 2NO 20:08 → OBSVTOIN 06-05 18:00
PROVIDERS: ADMIT Student in an Organized Health Care Education/Training Program; ATTEND Family Medicine
DX: N17.9 Acute kidney failure, unspecified (principal); E87.0 Hyperosmolality and hypernatremia; N39.0 Urinary tract infection, site not specified; E86.0 Dehydration; E83.52 Hypercalcemia; I48.0 Paroxysmal atrial fibrillation; I10 Essential (primary) hypertension; N20.0 Calculus of kidney; Z66 Do not resuscitate; G30.9 Alzheimer's disease, unspecified; F02.80 Dementia in other diseases classified elsewhere, unspecified severity, without behavioral disturbance, psychotic disturbance, mood disturbance, and anxiety
CPT/HCPCS: 36415; 36416; 71045; 74177; 80048; 80053; 81001; 82040; 82805; 83036; 83690; 83735; 83970; 85025; 86141; 87040; 87086; 87324; 87449; 87505; 93005; 96372; 96374; G0378; J0696; J1650; J3480; J3490; J7070; J7120; Q9967

== ENCOUNTER 2024-06-18 06:37 | Day surgery (SDC) | payer MEDICARE ==
[2024-06-15 12:55] VITALS: BMI 23.6
[2024-06-18] MEDS ORDERED: Sodium Chloride 0.9% 100 ML ONE (08:47)
[2024-06-18] MEDS ORDERED: cefTRIAXone (ROCEPHIN) 1 GM VIAL ONE (08:47)
[2024-06-18] MEDS ORDERED: Lidocaine 2% PF 5 ML VIAL ONE (08:54)
[2024-06-18] MEDS ORDERED: PROPOFOL 20 ML ONE (08:54)
[2024-06-18] MEDS ORDERED: PHENYLEPHRINE-NS 100 MCG/ML 10 ML SYRINGE ONE (09:07)
[2024-06-18] MEDS ORDERED: fentaNYL 50 mcg/mL 1 mL Vial ONE (10:46)
== END 2024-06-18 13:07 ==
LOC: SDC 06:37
PROVIDERS: ATTEND Urology
PROC: 0TC78ZZ Extirpation of Matter from Left Ureter, Via Natural or Artificial Opening Endoscopic (ICD-10-PCS; principal; 2024-06-18)
PROC: 0T778DZ Dilation of Left Ureter with Intraluminal Device, Via Natural or Artificial Opening Endoscopic (ICD-10-PCS; 2024-06-18)
DX: N20.1 Calculus of ureter (principal); I10 Essential (primary) hypertension; I48.0 Paroxysmal atrial fibrillation; E11.9 Type 2 diabetes mellitus without complications; E78.5 Hyperlipidemia, unspecified; G30.9 Alzheimer's disease, unspecified; Z86.73 Personal history of transient ischemic attack (TIA), and cerebral infarction without residual deficits; Z96.652 Presence of left artificial knee joint; Z90.49 Acquired absence of other specified parts of digestive tract; Z98.890 Other specified postprocedural states; Z79.899 Other long term (current) drug therapy
CPT/HCPCS: 52356; 74420; 82365; C2617; J0696; J2704; J3010; 88300

== ENCOUNTER 2024-06-30 10:47 | Inpatient (IN) | payer MEDICARE ==
[2024-06-30 11:29] LABS: #Basophils Less than 0.03 10x3/uL (0.0-0.2); %Basophils 0.2 % (0.0-1.0); %Eosinophils 0.7 % (0.0-10.0); %Lymphocytes 28.9 % (21.0-51.0); %Monocytes 8.2 % (0.0-10.0); %Neutrophils 61.6 % (42.0-75.0); Hematocrit 44.6 % (36.0-47.0); Hemoglobin 13.3 g/dL (12.0-16.0); Mean Corpuscular HGB CONC 29.8 g/dL (32.0-36.0); Mean Corpuscular Volume 107.5 fL (78.0-98.0); Mean Platelet Volume 12.8 fL (7.4-10.4); Platelet Count 99 10x3/uL (130-400); RBC Distribution Width 15.6 % (11.5-14.5); Red Blood Cell (RBC) Count 4.15 mill/uL (4.20-5.40)
[2024-06-30 11:55] LABS: ALT (SGPT) 40 U/L (8-55); AST (SGOT) 64 U/L (5-34); Albumin 2.6 g/dL (3.4-4.8); Alkaline Phosphatase 82 U/L (40-110); Anion Gap 15 mmol/L (10-20); BUN (Urea Nitrogen) 83 mg/dL (9.8-20.1); Bilirubin, Total 0.5 mg/dL (0.2-1.2); Calc. Creatinine Clearance 0 mL/min (70-130); Calcium 10.4 mg/dL (7.8-10.44); Carbon Dioxide 17 mmol/L (23-31); Chloride 143 mmol/L (98-107); Critical Call Chemistry NUR.DP6t; Estimated GFR 15; Globulin 4.1 g/dL (2.4-3.5); Glucose 109 mg/dL (83-110); Lipase 96 U/L (8-78); Potassium 5.1 mmol/L (3.5-5.1); Protein, Total 6.7 g/dL (5.8-8.1); Sodium 170 mmol/L (136-145)
[2024-06-30] MEDS: Dextrose 5% in Water 1,000 ML IV SCH (12:00)
[2024-06-30 12:02] LABS: INR-International Normal Ratio 1.2; PTT 23.6 sec (22.9-36.1); Prothrombin Time 14.7 sec (12.0-14.7)
[2024-06-30 12:24] LABS: Troponin I 0.144 ng/mL (< 0.028)
[2024-06-30] MEDS ORDERED: Piperacillin/Tazobactam 3.375 GM VIAL ONE (12:48)
[2024-06-30] MEDS ORDERED: Sodium Chloride 0.9% 100 ML ONE (12:49)
[2024-06-30 12:50] LABS: Actual Bicarbonate (HCO3a) 15.7 mEq/L (22-28); Analyzer IN Cardio ER; Base Excess (BEa) -6.7 mEq/L (-2.0 to +3.0); Calcium, Ionized (arterial) 1.44 mmol/L (1.12-1.30); Carboxyhemoglobin (COHb) 0.2 gm% (0.0-3.0); Hematocrit-ABG 39 % (36.0-47.0); Hemoglobin (Hb) 13.2 g/dL (12.0-16.0); O2 Tension (PaO2), arterial 90.4 mmHg (> 60.0); Potassium - ABG Lab 4.35 mmol/L (3.70-5.30); pH, Arterial 7.436 (7.35-7.45)
[2024-06-30 12:52] LABS: Puncture Site Left Radial artery
[2024-06-30] MEDS ORDERED: Iopamidol-370 76% 500 ML MDV (1 ML CHARGE) ONE (12:55)
[2024-06-30 13:09] LABS: Bilirubin Small (Negative); Blood, Urine Small (Negative); Glucose, Urine (Dipstick) Negative (Negative); Ketone, Urine Negative (Negative); Leukocyte Trace (Negative); Nitrite Negative (Negative); Protein, Urine (Dipstick) 30 mg/dL (Neg-Trace); Specific Gravity, Urine 1.025 (1.005-1.030); Urobilinogen 0.2 mg/dL (Less than 2)
[2024-06-30 13:18] LABS: CAUTI Indications for Culture Alt mental st,lethar
[2024-06-30 13:25] LABS: Clarity Cloudy (Clear)
[2024-06-30 13:26] LABS: Bacteria/HPF 1+ HPF (None Seen); WBC/HPF 21-50 HPF (0-3)
[2024-06-30 13:27] LABS: Triple Phosphate Crystal Rare HPF (None Seen)
[2024-06-30 13:28] LABS: Urine Culture Reflex Yes Yes
[2024-06-30 19:20] LABS: Anion Gap 13 mmol/L (10-20); BUN (Urea Nitrogen) 78 mg/dL (9.8-20.1); Calc. Creatinine Clearance 0 mL/min (70-130); Calcium 10.1 mg/dL (7.8-10.44); Carbon Dioxide 20 mmol/L (23-31); Chloride 141 mmol/L (98-107); Estimated GFR 16; Glucose 126 mg/dL (83-110); Potassium 4.4 mmol/L (3.5-5.1); Sodium 170 mmol/L (136-145)
[2024-06-30] MEDS ORDERED: Acetaminophen 650 MG Suppository PR PRN (19:58)
[2024-06-30] MEDS ORDERED: Ondansetron PF 4 MG/2 ML Vial IVP PRN (19:58)
[2024-06-30] MEDS: Heparin 5,000 UNITS/ML VIAL SC SCH (22:28)
[2024-06-30] MEDS: Albumin 25% 25 GM (100 mL) BOT IVPB SCH (22:28)
[2024-06-30] MEDS: Piperacillin/Tazobactam 3.375 GM in Sodium Chloride 0.9% 100 ML IVPB SCH (22:28)
[2024-06-30 23:00] VITALS: BMI 22.0
[2024-06-30 23:25] LABS: Anion Gap 17 mmol/L (10-20); BUN (Urea Nitrogen) 78 mg/dL (9.8-20.1); Calc. Creatinine Clearance 14 mL/min (70-130); Calcium 10.2 mg/dL (7.8-10.44); Carbon Dioxide 20 mmol/L (23-31); Chloride 139 mmol/L (98-107); Estimated GFR 15; Glucose 127 mg/dL (83-110); Sodium 171 mmol/L (136-145)
[2024-07-01] MEDS: Dextrose 5% in Water 1,000 ML IV SCH ×2 (02:48→11:53)
[2024-07-01] MEDS: Sodium Chloride 0.9% 500 ML IV SCH (04:00)
[2024-07-01 04:59] LABS: Anion Gap 13 mmol/L (10-20); BUN (Urea Nitrogen) 70 mg/dL (9.8-20.1); Calc. Creatinine Clearance 15 mL/min (70-130); Calcium 9.8 mg/dL (7.8-10.44); Carbon Dioxide 21 mmol/L (23-31); Chloride 139 mmol/L (98-107); Estimated GFR 16; Glucose 193 mg/dL (83-110); Potassium 4.1 mmol/L (3.5-5.1); Sodium 169 mmol/L (136-145)
[2024-07-01 06:30] LABS: #Basophils Less than 0.03 10x3/uL (0.0-0.2); %Basophils 0.1 % (0.0-1.0); %Eosinophils 1.3 % (0.0-10.0); %Lymphocytes 26.2 % (21.0-51.0); %Monocytes 7.4 % (0.0-10.0); %Neutrophils 64.5 % (42.0-75.0); Hematocrit 33.5 % (36.0-47.0); Hemoglobin 9.9 g/dL (12.0-16.0); Mean Corpuscular HGB CONC 29.6 g/dL (32.0-36.0); Mean Corpuscular Hemoglobin 31.6 pg (27.0-31.0); Mean Platelet Volume 12.7 fL (7.4-10.4); Platelet Count 87 10x3/uL (130-400); RBC Distribution Width 15.6 % (11.5-14.5); Red Blood Cell (RBC) Count 3.13 mill/uL (4.20-5.40)
[2024-07-01] MEDS: Pantoprazole 40 MG VIAL IVP SCH (10:02)
[2024-07-01 10:50] LABS: Anion Gap 11 mmol/L (10-20); BUN (Urea Nitrogen) 63 mg/dL (9.8-20.1); Calc. Creatinine Clearance 17 mL/min (70-130); Calcium 9.7 mg/dL (7.8-10.44); Carbon Dioxide 20 mmol/L (23-31); Chloride 137 mmol/L (98-107); Estimated GFR 18; Glucose 185 mg/dL (83-110); Potassium 3.8 mmol/L (3.5-5.1); Sodium 164 mmol/L (136-145)
[2024-07-01 18:51] LABS: Anion Gap 10 mmol/L (10-20); BUN (Urea Nitrogen) 52 mg/dL (9.8-20.1); Calc. Creatinine Clearance 19 mL/min (70-130); Carbon Dioxide 21 mmol/L (23-31); Chloride 134 mmol/L (98-107); Estimated GFR 21; Glucose 152 mg/dL (83-110); Potassium 3.6 mmol/L (3.5-5.1); Sodium 161 mmol/L (136-145)
[2024-07-02 04:48] LABS: Anion Gap 11 mmol/L (10-20); BUN (Urea Nitrogen) 42 mg/dL (9.8-20.1); Calc. Creatinine Clearance 21 mL/min (70-130); Calcium 9.9 mg/dL (7.8-10.44); Carbon Dioxide 20 mmol/L (23-31); Chloride 131 mmol/L (98-107); Estimated GFR 24; Glucose 156 mg/dL (83-110); Magnesium 2.2 mg/dL (1.6-2.6); Potassium 3.7 mmol/L (3.5-5.1); Sodium 158 mmol/L (136-145)
[2024-07-02 10:37] LABS: CO2 Tension 23.8 mmHg (35.0-45.0)
[2024-07-02 14:31] VITALS: BMI 23.4
[2024-07-03 06:45] LABS: Anion Gap 13 mmol/L (10-20); BUN (Urea Nitrogen) 26 mg/dL (9.8-20.1); Calc. Creatinine Clearance 31 mL/min (70-130); Calcium 9.8 mg/dL (7.8-10.44); Carbon Dioxide 17 mmol/L (23-31); Chloride 128 mmol/L (98-107); Estimated GFR 36; Glucose 150 mg/dL (83-110); Magnesium 1.9 mg/dL (1.6-2.6); Potassium 3.7 mmol/L (3.5-5.1); Sodium 154 mmol/L (136-145)
[2024-07-03 20:22] VITALS: BP 145/90; TEMP 98.9
[2024-07-04] MEDS ORDERED: FLU (Fluad Triv) TS24-25 (65UP)/MF59C/PF 45 MCG/0.5 ML Syringe IM ONE (09:00)
== END 2024-07-04 14:24 | disposition hospice, home (50) | DRG 682 ==
LOC: ERS 10:47 → IMCU/EMU 14:32 → T4-B 07-02 16:47
PROVIDERS: ADMIT Internal Medicine; ATTEND Hospitalist
PROC: 4A033R1 Measurement of Arterial Saturation, Peripheral, Percutaneous Approach (ICD-10-PCS; principal; 2024-06-30)
PROC: 3E02340 Introduction of Influenza Vaccine into Muscle, Percutaneous Approach (ICD-10-PCS; 2024-07-04)
DX: N17.9 Acute kidney failure, unspecified (principal); G93.41 Metabolic encephalopathy; U07.1 COVID-19; J12.82 Pneumonia due to coronavirus disease 2019; E87.0 Hyperosmolality and hypernatremia; D62 Acute posthemorrhagic anemia; E87.20 Acidosis, unspecified; Z51.5 Encounter for palliative care; Z66 Do not resuscitate; G30.9 Alzheimer's disease, unspecified; F02.80 Dementia in other diseases classified elsewhere, unspecified severity, without behavioral disturbance, psychotic disturbance, mood disturbance, and anxiety; E78.5 Hyperlipidemia, unspecified; N18.30 Chronic kidney disease, stage 3 unspecified; I12.9 Hypertensive chronic kidney disease with stage 1 through stage 4 chronic kidney disease, or unspecified chronic kidney disease; E86.0 Dehydration; Z96.652 Presence of left artificial knee joint; E83.42 Hypomagnesemia; E87.8 Other disorders of electrolyte and fluid balance, not elsewhere classified; E88.09 Other disorders of plasma-protein metabolism, not elsewhere classified; I48.0 Paroxysmal atrial fibrillation; I67.1 Cerebral aneurysm, nonruptured; Z90.49 Acquired absence of other specified parts of digestive tract; Z79.899 Other long term (current) drug therapy; Z79.84 Long term (current) use of oral hypoglycemic drugs; Z86.73 Personal history of transient ischemic attack (TIA), and cerebral infarction without residual deficits; Z23 Encounter for immunization
CPT/HCPCS: 36415; 36416; 36600; 51702; 70450; 70496; 70498; 71045; 71250; 74177; 76770; 80048; 80053; 81001; 82805; 83605; 83690; 83735; 83880; 83930; 83935; 84145; 84300; 84443; 84484; 85025; 85610; 85730; 87040; 87077; 87086; 87186; 93005; 96374; J1644; J2470; J2543; J7030; J7070; P9047; Q9967